=== PATIENT | female | born 1980 | race Caucasian/White ===

== ENCOUNTER → 2019-03-27 19:38 | Outpatient (CLI) | payer OTHER, SELFPAY ==
[2019-03-27 20:49] LABS: HCG Quantitative /Beta subunit 211200 mIU/mL
== END ==
PROVIDERS: Visit Provider Obstetrics & Gynecology
DX: O20.9 Hemorrhage in early pregnancy, unspecified (principal)
CPT/HCPCS: 36415; 84702

== ENCOUNTER → 2019-03-29 17:50 | Outpatient (CLI) | payer OTHER, SELFPAY ==
[2019-03-29 18:29] LABS: Add Manual Diff / Slide Review NO; Basophils Absolute Auto 0 /uL (0-100); Basophils Percent Auto 0.4 % (0-2); Eosinophils Absolute Auto 100 /uL (0-450); Eosinophils Percent Auto 0.9 % (2-4); Hematocrit 39.6 % (36-46); Hemoglobin 13.7 g/dL (12.0-16.0); Lymphocytes Absolute Auto 1500 /uL (1100-4500); Lymphocytes Percent Auto 20.3 % (25-40); Mean Corpuscular HGB Conc 34.7 % (30-36); Mean Corpuscular Hemoglobin 32.7 PG (26-34); Mean Corpuscular Volume 94.4 fL (80-100); Monocytes Absolute Auto 400 /uL (0-900); Monocytes Percent Auto 5.6 % (3-14); Neutrophils Absolute Auto 5400 /uL (1500-7000); Neutrophils Percent Auto 72.8 % (50-75); Platelet Count 287 X10^3/uL (150-400); Red Blood Cell Count 4.19 X10^6/uL (4.0-5.2); Red Cell Distribution Width 12.4 % (11.6-14.8); White Blood Cell Count 7.5 X10^3/uL (4.5-11.0)
[2019-03-29 18:31] LABS: Appearance Urine UA CLEAR; Bilirubin Urine UA NEGATIVE (NEGATIVE); Color Urine UA YELLOW; Glucose Urine UA NEGATIVE (Negative); Ketones Urine UA NEGATIVE (NEGATIVE); Leukocyte Esterase Urine UA NEGATIVE (NEGATIVE); Nitrite Urine UA NEGATIVE (Negative); Occult Blood Urine UA NEGATIVE (Negative); Protein Urine UA NEGATIVE (Negative); Specific Gravity Urine UA <=1.005 (1.000-1.035); Urobilinogen Urine UA 0.2 E.U./dL (0.2); pH Urine UA 6.5 (4.5-8.0)
[2019-03-29 19:48] LABS: Hepatitis B Surface Antigen NEGATIVE s/c (NEGATIVE); Rubella Antibody IgG 41.1 IU/mL (>15)
[2019-03-29 19:51] LABS: HCG Quantitative /Beta subunit 241170 mIU/mL
[2019-03-29 20:00] LABS: HIV 1 and 2 Antibody NEGATIVE (NEGATIVE); Hep C Virus Ab w/Reflex Quant NEGATIVE s/c (NEGATIVE)
[2019-04-01 18:15] LABS: RPR Screen Nonreactive (Nonreactive)
== END ==
PROVIDERS: Visit Provider Obstetrics & Gynecology
DX: Z34.81 Encounter for supervision of other normal pregnancy, first trimester (principal); O20.9 Hemorrhage in early pregnancy, unspecified
CPT/HCPCS: 36415; 80055; 81003; 84702; 86703; 86787; 86803; 86850; 86900; 86901; 87086

== ENCOUNTER → 2019-04-18 13:06 | Outpatient (CLI) | payer OTHER, SELFPAY | PROVIDERS: Visit Provider Obstetrics & Gynecology | DX: O09.529 Supervision of elderly multigravida, unspecified trimester (principal); Z3A.00 Weeks of gestation of pregnancy not specified | CPT/HCPCS: 36415; 81507 ==

== ENCOUNTER 2019-05-30 11:31 | Day surgery (SDC) | payer OTHER, SELFPAY ==
[2019-05-29 15:24] VITALS: BMI 27.5
[2019-05-30] VITALS (8 sets, daily range): BP systolic 98–129; BP diastolic 71–97; PULSE 70–89; RESP 12–16; TEMP 36.1–36.8; O2SAT 96–100; BMI 27.5
--- NOTE | 2019-05-30 | PATH_ITS ---
[facility] Accession Number: [id number] . 01 Material submitted: . product of conception - PRODUCTS OF CONCEPTION . 01 Clinical history: . INCOMPLETE . 02 Diagnosis: Products of Conception: Focal devitalized tissue with an architecture consistent with devitalized chorionic villi (block A4). Background decidualized endometrium with degenerative changes. No evidence of neoplasm. MRV 06/05/2019 1440 Local . 02 Electronically signed: . Sheldon Gilbert MD, PhD, Pathologist NPI- [id number] . 01 Gross description: . PRODUCTS OF CONCEPTION: Received in formalin are multiple fragments of hemorrhagic spongy tissue measuring 5.0 x 2.0 x 1.0 cm in aggregate. parts are not identified. Appeals Examiner sections are submitted in 2 cassettes. [place] [place] 2311 Local . 02 Pathologist provided ICD-10: O02.1 . 02 CPT . 691152 Performed at: 01 [facility] [address] Suite [facility], [place], [place] [id number] MD Albino Tadeo MD Phone: [phone] Performed at: 02 [facility] [address] [place], [place] [id number] MD Ana Pena MD Phone: [phone]
--- NOTE | 2019-05-30 12:53 | PM.HP.1 ---
History of Present Illness History of Present Illness Date Patient Seen: 05/30/19 Time Patient Seen: 12:54 Chief complaint: [id number] Narrative: Patient is a 38-year-old 2 para 1011 with retained products of conception here for a suction D&C Patient History Medical History (Updated 05/29/19 @ 15:30 by Yasmin Pina RN) Abnormal Pap smear of cervix (Resolved) Heavy menstrual period (Chronic) Irregular heart beat (Acute) Pre-eclampsia (Acute) Tachycardia (Acute) Vision disorder (Chronic) Surgical History (Updated 02/18/19 @ 21:28 by Randi Maldonado) Anesthesia (Resolved) Previous section (Resolved ~03/23/05) Family History (Updated 02/18/19 @ 21:46 by Randi Maldonado) Father Multiple sclerosis Mother Breast cancer Hyperlipidemia Brother [place] Grandfather Diabetes mellitus History of heart disease Hypertension Hyperlipidemia Grandmother Diabetes mellitus Grandfather Diabetes mellitus History of heart disease Hypertension Hyperlipidemia Grandmother Epilepsy CVA (cerebral vascular accident) Family/Other Asthma Seasonal allergies Social History household members: spouse and children Smoking Status: Never smoker Family & Social History Family History (Updated 02/18/19 @ 21:46 by Randi Maldonado) Father Multiple sclerosis Mother Breast cancer Hyperlipidemia Brother [place] Grandfather Diabetes mellitus History of heart disease Hypertension Hyperlipidemia Grandmother Diabetes mellitus Grandfather Diabetes mellitus History of heart disease Hypertension Hyperlipidemia Grandmother Epilepsy CVA (cerebral vascular accident) Family/Other Asthma Seasonal allergies Social History: household members spouse,children Tobacco & Substance use: Smoking Status Never smoker Meds Home Medications and Allergies Home Medications Medication Instructions Recorded Confirmed Type cholecalciferol (vitamin D3) 5,000 5,000 unit PO DAILY 01/01/19 05/29/19 History unit capsule Allergies Allergy/AdvReac Type Severity Reaction Status Date / Time adhesive tape AdvReac Mild Hives Verified 05/29/19 11:38 aspirin AdvReac Verified 05/30/19 12:08 Latex, Natural Rubber AdvReac Mother : Verified 05/29/19 11:38 anaphylaxis re Latex - would like to avoid that! Exam Vital Signs (past 8 hours): - 05/30/19 11:54 Temperature 98.3 F Pulse Rate 84 Respiratory Rate 16 Blood Pressure 123/78 Pulse Oximetry 100 Oxygen Delivery Method Room Air Narrative Exam Narrative: HEENT: [No thyromegaly, no anterior cervical or supraclavicular lymphadenopathy.] Lungs:[Clear to auscultation bilaterally, no wheezes.] Cardiovascular: [Regular rate and rhythm, no murmurs, rubs, or gallops]. Abdomen: [Well-healed Pfannenstiel scars. No hepatosplenomegaly. No masses palpable.] External genitalia: [Normal] Vagina: [Normal] Cervix: [Normal] Bimanual exam: 8 Week size uterus. Mobile. Rectal: [No masses]. Ultrasound: Thickened endometrial lining to 16 mm. Heterogeneous contents. Assessment & Plan Assessment & Plan narrative: Assessment: 38-year-old 2 para 1011 with retained products of conception after a delivery at 16 weeks gestation Plan: Suction D&C The risks, benefits, and alternatives to the procedure were explained to the patient. The risks including bleeding, infection, and uterine perforation. Patient understands these risks and agrees to proceed. A full par Q was held and consent form was signed. Time Spent With Patient Time with patient: less than 15 minutes
--- NOTE | 2019-05-30 13:14 | PM.PREOP ---
Pre-operative Note Interval Note History & Physical reviewed/Exam performed by Physician: Yes Changes to H&P: No
[2019-05-30] MEDS: CEFAZOLIN 2 GM/100 ML FROZ.PIGGY IV (13:26)
--- NOTE | 2019-05-30 13:33 | SUR.OPER ---
Lithotomy on padded OR bed, head on pillow, arms secured on padded arm boards at <90 degrees abduction. Legs secured in padded yellow fins stirrups.
--- NOTE | 2019-05-30 13:49 | SUR.OPER ---
DR William AYALA OBSERVED GREEN CLOUDY FLUID FROM UTERUS..ANTIBIOTICS ORDERED. PATIENT DID NOT GET CATHETERIZED SHE HAD VOIDED 30 MIN PRIOR TO OR
--- NOTE | 2019-05-30 13:52 | SUR.OPER ---
Lithotomy on padded OR bed, head on pillow, arms secured on padded arm boards at <90 degrees abduction. Legs secured in padded yellow fins stirrups.
--- NOTE | 2019-05-30 15:11 | SUR.PHASEI ---
Post op note: patient arrived to PACU with oral airway in place. Easily arrousable by voice at 1354, woke up tearful. oral airway was discontinued. VSS, O2 sat on RA WNL. No complaints of pain or nausea. raine pad dry. Stable for transfer to OPD at 1415. Verbal handoff report to Johnny Borrego RN.
--- NOTE | 2019-05-30 16:00 | PM.GYNOP.1 ---
Operative Date/Time/Diagnoses Date of procedure: 05/30/19 Time of procedure: 13:30 Pre-op diagnosis: Retained products conception Post-op diagnosis: same Procedure & Clinicians Procedure: Procedures Operation Date: 05/30/19 13:00 Actual Procedures Side Surgeon p Suction Dilation and Curettage Mishel Enciso MD Indications: Retained products conception Surgeon: Mishel Enciso Anesthesia Type: General (LMA) Operative Notes Findings: 8 week size anteverted uterus Moderate amount of products conception Closure Type: not applicable Specimen(s): uterine contents Estimated blood loss (mL): 50 Blood products transfused: none Procedure in detail: After informed consent was obtained, the patient was taken to the operating room where she was placed in the dorsal supine position. After adequate LMA general anesthesia was achieved, she was placed in the dorsal lithotomy position, and prepped and draped in the usual sterile fashion. A time-out was performed. A bimanual exam was performed which revealed an 8 week size anteverted uterus. A bivalve speculum was placed into the vagina and the anterior lip of the cervix grasped with a single-tooth tenaculum. The cervical os was sequentially dilated to the # 8 Hegar dilator. The # 8 curved plastic curette passed easily into the endometrial cavity. Several passes with suction revealed moderate amount of tissue. The suction curette was removed. Polyp forceps were used to remove several large pieces of retained products of conception. Sharp curettage was performed yielding small amount of tissue and mostly blood. Several more passes with the # 8 curved plastic curette revealed blood only. The instruments were removed from the uterus. The single-tooth tenaculum was removed from the anterior lip of the cervix. The bivalve speculum was removed from the vagina. Sponge, lap, and instrument counts were correct x2. The patient tolerated the procedure well, and was taken to PACU in stable condition. Complications: none Post-operative Condition: stable Disposition: PACU Plan for aftercare: Home after recovery
== END 2019-05-30 14:44 | disposition home or self-care (01) ==
PROVIDERS: Visit Provider Obstetrics & Gynecology
PROC: (CPT 58120; principal; 2019-05-30 13:00)
DX: O02.1 Missed abortion (principal); Z3A.08 8 weeks gestation of pregnancy
CPT/HCPCS: 59821; J0690; J2250; J2405; J2704; J3010

== ENCOUNTER → 2020-02-13 08:40 | Outpatient (CLI) | payer OTHER, SELFPAY ==
[2020-02-13 09:30] LABS: Progesterone, Total 4.24 ng/mL
[2020-02-13 09:32] LABS: Prolactin 16.9 ng/mL (3.0-18.6)
== END ==
PROVIDERS: PCP Physician Assistant; Referring Provider Specialist; Visit Provider Specialist
DX: N63.21 Unspecified lump in the left breast, upper outer quadrant (principal); N97.0 Female infertility associated with anovulation
CPT/HCPCS: 36415; 84144; 84146

== ENCOUNTER → 2020-02-24 13:12 | Outpatient (CLI) | payer OTHER, SELFPAY ==
--- NOTE | 2020-02-24 | DI.US.S_ITS ---
LIMITED ULTRASOUND OF LEFT BREAST: 02/24/2020 CLINICAL: Palpable left breast lump. Baseline exam. No prior exams were available for comparison. Color flow and real-time ultrasound of the left breast 1-2 o'clock region were performed. Vu scale images of the real-time examination were reviewed. Gravid patient. No significant abnormalities were seen sonographically in the left breast in the region of the palpable abnormality. No mass is appreciated by the Rotary Drum Tanner at the time of examination. IMPRESSION: NEGATIVE There is no sonographic evidence of malignancy in the region of the palpable abnormality. Patient is advised to monitor the area for significant change. Clinical evaluation and follow up is recommended in this gravid patient. Otherwise, return to annual mammogram screening schedule is recommended. This exam was interpreted at Station ID: [id number]. Electronically Signed By: Alvaro Norton M.D. [facility] [place]/:02/24/2020 14:50:15 letter sent: Clinical Evaluation Ultrasound BI-RADS: 1 Negative
[2020-02-24 15:10] LABS: HCG Quantitative /Beta subunit 3211.1 mIU/mL
== END ==
PROVIDERS: PCP Physician Assistant; Referring Provider Physician Assistant; Visit Provider Physician Assistant
DX: O92.29 Other disorders of breast associated with pregnancy and the puerperium (principal); Z3A.00 Weeks of gestation of pregnancy not specified
CPT/HCPCS: 36415; 76642; 84702

== ENCOUNTER → 2020-02-29 11:42 | Outpatient (CLI) | payer OTHER, SELFPAY ==
[2020-02-29 12:04] LABS: Appearance Urine UA CLEAR; Bilirubin Urine UA NEGATIVE (NEGATIVE); Color Urine UA YELLOW; Glucose Urine UA NEGATIVE (Negative); Ketones Urine UA NEGATIVE (NEGATIVE); Leukocyte Esterase Urine UA TRACE (NEGATIVE); Nitrite Urine UA NEGATIVE (Negative); Occult Blood Urine UA TRACE-LYSED (Negative); Protein Urine UA NEGATIVE (Negative); Specific Gravity Urine UA <=1.005 (1.000-1.035); Urobilinogen Urine UA 0.2 E.U./dL (0.2)
[2020-02-29 12:13] LABS: Bacteria Urine Few (2-10); Culture Indicated Urine Specimen Cultured; RBC Urine 0-1/HPF (0-5/HPF); Squamous Epithelial Cell Urine 1-5 /HPF (0-5/HPF); WBC Urine 1-5/HPF (0-5/HPF)
== END ==
PROVIDERS: PCP Physician Assistant; Referring Provider Specialist; Visit Provider Specialist
DX: R35.0 Frequency of micturition (principal)
CPT/HCPCS: 81001; 87077; 87086

== ENCOUNTER → 2020-03-02 17:00 | Outpatient (CLI) | payer OTHER, SELFPAY ==
[2020-03-02 18:26] LABS: HCG Quantitative /Beta subunit 27461 mIU/mL
== END ==
PROVIDERS: PCP Physician Assistant; Referring Provider Specialist; Visit Provider Specialist
DX: O20.9 Hemorrhage in early pregnancy, unspecified (principal)
CPT/HCPCS: 36415; 84702

== ENCOUNTER → 2020-03-04 16:12 | Outpatient (CLI) | payer OTHER, SELFPAY ==
[2020-03-04 18:00] LABS: HCG Quantitative /Beta subunit 42138 mIU/mL
== END ==
PROVIDERS: PCP Physician Assistant; Referring Provider Specialist; Visit Provider Specialist
DX: O20.9 Hemorrhage in early pregnancy, unspecified (principal)
CPT/HCPCS: 36415; 84702

== ENCOUNTER → 2020-03-24 15:25 | Outpatient (CLI) | payer OTHER, SELFPAY ==
[2020-03-24 19:51] LABS: Urine N gonorrhoeae NOT DETECTED
[2020-03-24 19:59] LABS: Urine Chlamydia NOT DETECTED
== END ==
PROVIDERS: PCP Physician Assistant; Visit Provider Obstetrics & Gynecology
DX: Z34.81 Encounter for supervision of other normal pregnancy, first trimester (principal); Z11.3 Encounter for screening for infections with a predominantly sexual mode of transmission; Z3A.09 9 weeks gestation of pregnancy
CPT/HCPCS: 87491; 87591

== ENCOUNTER → 2020-03-24 16:03 | Outpatient (CLI) | payer OTHER, SELFPAY ==
[2020-03-24 16:47] LABS: Add Manual Diff / Slide Review NO; Basophils Absolute Auto 0 /uL (0-100); Basophils Percent Auto 0.3 % (0-2); Eosinophils Absolute Auto 100 /uL (0-450); Hematocrit 36.4 % (36-46); Lymphocytes Absolute Auto 1700 /uL (1100-4500); Mean Corpuscular HGB Conc 35.7 % (30-36); Mean Corpuscular Hemoglobin 33.2 PG (26-34); Mean Corpuscular Volume 92.8 fL (80-100); Monocytes Absolute Auto 500 /uL (0-900); Neutrophils Absolute Auto 5300 /uL (1500-7000); Neutrophils Percent Auto 69.7 % (50-75); Platelet Count 265 X10^3/uL (150-400); Red Blood Cell Count 3.93 X10^6/uL (4.0-5.2); Red Cell Distribution Width 12.5 % (11.6-14.8); White Blood Cell Count 7.6 X10^3/uL (4.5-11.0)
[2020-03-24 17:08] LABS: Appearance Urine UA CLEAR; Bilirubin Urine UA NEGATIVE (NEGATIVE); Color Urine UA YELLOW; Glucose Urine UA NEGATIVE (Negative); Ketones Urine UA 1+ (NEGATIVE); Leukocyte Esterase Urine UA NEGATIVE (NEGATIVE); Nitrite Urine UA NEGATIVE (Negative); Occult Blood Urine UA NEGATIVE (Negative); Protein Urine UA NEGATIVE (Negative); Specific Gravity Urine UA <=1.005 (1.000-1.035); Urobilinogen Urine UA 0.2 E.U./dL (0.2)
[2020-03-24 17:12] LABS: pH Urine UA 5.5 (4.5-8.0)
[2020-03-24 21:16] LABS: Hepatitis B Surface Antigen NEGATIVE s/c (NEGATIVE); Rubella Antibody IgG 31.3 IU/mL (>15)
[2020-03-24 21:33] LABS: HIV 1 & 2 Ab/Ag 4th Gen Combo NEGATIVE (NEGATIVE); Hep C Virus Ab w/Reflex Quant NEGATIVE s/c (NEGATIVE)
[2020-03-25 04:08] LABS: RPR Screen Non Reactive (Non Reactive)
[2020-03-25 10:08] LABS: Varicella IgG Antibody 305 index (Immune >165)
== END ==
PROVIDERS: PCP Physician Assistant; Referring Provider Obstetrics & Gynecology; Visit Provider Obstetrics & Gynecology
DX: O09.521 Supervision of elderly multigravida, first trimester (principal); Z11.3 Encounter for screening for infections with a predominantly sexual mode of transmission; Z3A.09 9 weeks gestation of pregnancy
CPT/HCPCS: 36415; 80055; 81003; 86787; 86803; 86850; 86900; 86901; 87086; 87389; 87491; 87591

== ENCOUNTER 2020-04-12 16:52 | Emergency (ER) | payer OTHER, SELFPAY ==
[2020-04-12 17:09] VITALS: BP 117/71; PULSE 99; RESP 16; TEMP 37.1; O2SAT 99; BMI 28.7
--- NOTE | 2020-04-12 17:20 | DI.US.S_ITS ---
PROCEDURE: US OB <= 14 WEEKS FETUS INDICATIONS: BLEEDING OUTSIDE/PRIOR DATING DATA: Last menstrual period (LMP): 01/20/20. LMP-based estimated date of delivery (NEREYDA): 10/26/20 . First dating scan (date and location): 03/09/20 . Estimated date of delivery (NEREYDA) from first dating scan: 10/20/20 . TECHNIQUE: Real-time scanning was performed of the fetus and maternal pelvic organs, with image documentation. Endovaginal scanning was also performed to better visualize the fetus and maternal ovaries. COMPARISON: [facility], , OB <= 14 WEEKS FETUS, 03/24/2020, 13:08. FINDINGS: Embryo: A single living 1st trimester intrauterine is noted. Mitchell-rump length measures 6.3 cm, 12 weeks 5 days. There is a complete placenta previa. There is is wall hypoechoic area which may potentially represent a subchorionic hemorrhage measuring 0.7 x 0.3 x 0.6 cm. Incidental uterine fibroid measures 1.0 x 1.0 x 1.2 cm. heart tones are 163 beats per minute. Measurement variability in dating: +/- 4 weeks by LMP, +/- 7 days by mean sac diameter (use before 6 weeks gestation if crown-rump length not able to be measured), +/- 5 days by crown-rump length (up to 8 weeks 6 days gestation), +/- 7 days by crown-rump length (up to 13 weeks 6 days gestation). Maternal organs: Ovaries not visualized. Limited images through the kidneys demonstrate no hydronephrosis. IMPRESSION: 1. Living late 1st trimester intrauterine . 2. Complete placenta previa. Dictated by: Babak Clayton M.D. on 04/12/2020 at 18:23 Approved by: Babak Clayton M.D. on 04/12/2020 at 18:27
[2020-04-12 17:45] LABS: Add Manual Diff / Slide Review NO; Basophils Absolute Auto 0 /uL (0-100); Basophils Percent Auto 0.4 % (0-2); Eosinophils Absolute Auto 100 /uL (0-450); Hematocrit 37.5 % (36-46); Hemoglobin 13.3 g/dL (12.0-16.0); Lymphocytes Absolute Auto 1600 /uL (1100-4500); Lymphocytes Percent Auto 20.8 % (25-40); Mean Corpuscular HGB Conc 35.4 % (30-36); Mean Corpuscular Hemoglobin 32.6 PG (26-34); Mean Corpuscular Volume 91.9 fL (80-100); Monocytes Absolute Auto 400 /uL (0-900); Monocytes Percent Auto 5.5 % (3-14); Neutrophils Absolute Auto 5600 /uL (1500-7000); Neutrophils Percent Auto 72.3 % (50-75); Platelet Count 274 X10^3/uL (150-400); Red Blood Cell Count 4.08 X10^6/uL (4.0-5.2); Red Cell Distribution Width 12.7 % (11.6-14.8); White Blood Cell Count 7.7 X10^3/uL (4.5-11.0)
[2020-04-12 17:59] LABS: INR 0.9 (0.9-1.3); Prothrombin Time 10.4 SECONDS (10.1-12.7)
[2020-04-12 18:02] LABS: PTT Partial Thromboplastin Tim 31 SECONDS (26.4-36.2)
[2020-04-12 18:48] LABS: HCG Quantitative /Beta subunit 102800 mIU/mL
[2020-04-12 19:09] VITALS: BP 116/73; PULSE 92; RESP 14; O2SAT 100
[2020-04-12 19:10] VITALS: BP 116/73
--- NOTE | 2020-04-13 01:59 | ED_ITS ---
HPI - <Jeovanny Roldan [facility] - Last Filed: 04/13/20 02:15> General Chief complaint: OB/Uterine Contractions Stated complaint: 12wks , Vaginal Bleeding, Sent by Dr Time Seen by Provider: 04/12/20 17:19 Source: patient Mode of arrival: Ambulatory Limitations: no limitations History of Present Illness HPI Narrative: This is a 39-year-old female, nonsmoker, who is with history of 2nd trimester loss to chorioamnionitis with GBS infection at 16 week EGA presents to ED with chief complain of increasing bright red vaginal spotting and bleeding. She reports LMP as 01/20/20 and 12 week EGA. Patient reports she was referred by Dr. Enciso for ultrasound test. She reports initially noticed light pink tinged vaginal discharge 4 weeks ago and has been seeing Dr. Enciso for early ultrasound test and follow-ups since she has 2nd trimester miscarriage. Three weeks ago she had 2 large red vaginal clots which stopped after a week. She noticed recurring vaginal bleed on today but this time it was bright red in color. It covered the whole large toilet tissue. She drink water and rested at least 2 hour and she had another episode of vaginal gush and clots which was bright red. Patient denies chest pain, breathing difficulty, lightheadedness. Patient reports very mild suprapubic pressure. Hx Last Menstrual Period: 01/20/20 Patient : Yes Expected Date of Delivery: 10/26/20 Related Data Home Medications Medication Instructions Recorded Confirmed prenat.vits,gilberto,[id number] 1 tab PO DAILY 03/25/20 03/25/20 Allergies Allergy/AdvReac Type Severity Reaction Status Date / Time Latex, Natural Rubber AdvReac Severe Mother : Verified 04/12/20 17:15 anaphylaxis re Latex - would like to avoid that! aspirin AdvReac Intermediate skin was Verified 04/12/20 17:15 on fire and severe flu-like feeling adhesive tape AdvReac Mild Hives Verified 04/12/20 17:15 Review of Systems <Jeovanny Roldan PRIMARY OPERATOR - Last Filed: 04/13/20 02:15> Review of Systems Narrative: General: Denies fever, chills, fatigue, malaise, sweats. HEENT: Denies sinus pain, ear pain, sore throat, difficulty swallowing, dizziness. Respiratory: Denies dyspnea, cough, wheezing, hemoptysis, sputum. Cardiovascular: Denies chest pain, palpitations, orthopnea, edema. Gastrointestinal: Denies nausea, vomiting, abdominal pain, diarrhea, constipation, melena. : See HPI Musculoskeletal: Denies weakness, joint pain or bony pain. Skin: Denies rash, skin lesions, or other. Neurologic: Denies weakness, headache, numbness, change in speech, confusion, seizures, incoordination. Psychiatric: No concerning psychosocial issues. 12-point review of systems is negative except for those stated above. PMFSH - <ESEQUIEL DrummondP - Last Filed: 04/13/20 02:15> Past Medical History NEWSPAPER OR PERIODICAL EDITOR history: Reports Spontaneous (at 16 wk EGA due to GBS infection) Hx Last Menstrual Period: 01/20/20 Patient : Yes Expected Date of Delivery: 10/26/20 Exam [facility] - Last Filed: 04/13/20 02:15> Narrative Exam Narrative: General appearance: well developed, well nourished, in no acute distress. Head: normocephalic, atraumatic, no scalp lesions, non-tender. ENT: Hearing grossly intact. Airway patent. Neck/Thyroid: neck supple, full range of motion, no visible masses or meningeal signs. No JVD, non-tender without lymphadenopathy. Skin: no suspicious rashes, lesions over visible areas. Warm and dry and appropriate color for ethnicity. Heart: no clubbing, no cyanosis, no edema. S1 and S2 normal. RRR w/o murmurs, clicks, or bruits. Lungs: Breathing even and unlabored. No stridor. No accessory muscles used. Able to speak in full sentences. Chest: normal shape and expansion. Abdomen: non-obese, non-distended. Neurologic: alert and oriented. Cognitive exam, CRIMINAL JUSTICE PROGRAM DIRECTOR and PNS grossly intact on informal exam. Psych: good eye contact, normal affect. Initial Vital Signs Initial Vital Signs: Vital Signs Temperature 98.8 F 04/12/20 17:09 Pulse Rate 99 H 04/12/20 17:09 Respiratory Rate 16 04/12/20 17:09 Blood Pressure 117/71 04/12/20 17:09 Pulse Oximetry 99 04/12/20 17:09 <Gisele Gibbons MD - Last Filed: 04/13/20 03:19> Initial Vital Signs Initial Vital Signs: Vital Signs Temperature 98.8 F 04/12/20 17:09 Pulse Rate 99 H 04/12/20 17:09 Respiratory Rate 16 04/12/20 17:09 Blood Pressure 117/71 04/12/20 17:09 Pulse Oximetry 99 04/12/20 17:09 Scores <YAHAIRA Drummond - Last Filed: 04/13/20 02:15> GCS Gipsy coma scale eye opening: Spontaneous Ceci coma scale verbal response: Orientated Ceci coma scale motor response: Obey commands Gipsy coma scale total score: 15 Course <YAHAIRA Drummond - Last Filed: 04/13/20 02:15> Orders Ordered: ED Orders 04/12/20 17:20 US OB <= 14 weeks fetus Stat 04/12/20 17:35 ABO RH Type Stat Complete Blood Count AUTO DIFF Stat HCG Quantitative /Beta subunit Stat Partial Thromboplastin Time Stat Prothrombin Time INR Stat Vital Signs Vital signs: Vital Signs - 8 hr 04/12/20 19:09 04/12/20 19:10 Pulse Rate 92 H Respiratory Rate 14 Blood Pressure 116/73 116/73 Pulse Oximetry 100 <Gisele Gibbons MD - Last Filed: 04/13/20 03:19> Orders Ordered: ED Orders 04/12/20 17:20 US OB <= 14 weeks fetus Stat 04/12/20 17:35 ABO RH Type Stat Complete Blood Count AUTO DIFF Stat HCG Quantitative /Beta subunit Stat Partial Thromboplastin Time Stat Prothrombin Time INR Stat Vital Signs Vital signs: Vital Signs - 8 hr 04/12/20 19:09 04/12/20 19:10 Pulse Rate 92 H Respiratory Rate 14 Blood Pressure 116/73 116/73 Pulse Oximetry 100 MDM - OB/Uterine Contractions <YAHAIRA Drummond - Last Filed: 04/13/20 02:15> Differential Diagnosis Differential diagnosis: Likely other (Placenta previa, placenta rupture, threatened ) Medical Records Attestation: I reviewed the patient's medical records. Lab Data Attestation: I reviewed the patient's lab results. Result diagrams: 04/12/20 17:35 Labs: Lab Results 04/12/20 04/12/2004/12/20 Range/Units 17:35 17:35 17:35 WBC 7.7 (4.5-11.0) X10^3/uL RBC 4.08 (4.0-5.2) X10^6/uL Hgb 13.3 (12.0-16.0) g/dL Hct 37.5 (36-46) % MCV 91.9 (80-100) fL MCH 32.6 (26-34) PG MCHC 35.4 (30-36) % RDW 12.7 (11.6-14.8) % Plt Count 274 (150-400) X10^3/uL Neut % (Auto) 72.3 (50-75) % Lymph % (Auto) 20.8 L (25-40) % [place] % (Auto) 5.5 (3-14) % Eos % (Auto) 1.0 L (2-4) % Baso % (Auto) 0.4 (0-2) % Neut # (Auto) 5600 (8245-7969) /uL Lymph # (Auto) 1600 (6462-1170) /uL [place] # (Auto) 400 (0-900) /uL Eos # (Auto) 100 (0-450) /uL Baso # (Auto) 0 (0-100) /uL PT 10.4 (10.1-12.7) SECONDS INR 0.9 (0.9-1.3) APTT 31 (26.4-36.2) SECONDS HCG, Quant [id number] mIU/mL Blood Type 04/12/20 Range/Units 17:35 WBC (4.5-11.0) X10^3/uL RBC (4.0-5.2) X10^6/uL Hgb (12.0-16.0) g/dL Hct (36-46) % MCV (80-100) fL MCH (26-34) PG MCHC (30-36) % RDW (11.6-14.8) % Plt Count (150-400) X10^3/uL Neut % (Auto) (50-75) % Lymph % (Auto) (25-40) % [place] % (Auto) (3-14) % Eos % (Auto) (2-4) % Baso % (Auto) (0-2) % Neut # (Auto) (9192-0254) /uL Lymph # (Auto) (7318-1166) /uL [place] # (Auto) (0-900) /uL Eos # (Auto) (0-450) /uL Baso # (Auto) (0-100) /uL PT (10.1-12.7) SECONDS INR (0.9-1.3) APTT (26.4-36.2) SECONDS HCG, Quant mIU/mL Blood Type O Positive MDM Narrative Medical decision making narrative: This is 39-year-old female with 12 with EGA, AB1 at 16 week EGA April last year due to GBS infection presents to ED with light bright red vaginal bleeding that recurred today with very mild suprapubic pressure. CBC shows normal H&H of 13.3/37.5. Normal coags with HCG quant of [id number]. US for <14 week shows living late 1st trimester IUP with heart rate of [address] Enciso consulted and was recommended patient to remain modified pelvic rest and to follow-up with her in 2 days. Findings and recommendation were shared w ith the patient and patient verbalized understanding and in agreement with treatment plan. Strict return precautions were also discussed with patient. <Gisele Gibbons MD - Last Filed: 04/13/20 03:19> Lab Data Labs: Lab Results 04/12/20 04/12/20 04/12/20 Range/Units 17:35 17:35 17:35 WBC 7.7 (4.5-11.0) X10^3/uL RBC 4.08 (4.0-5.2) X10^6/uL Hgb 13.3 (12.0-16.0) g/dL Hct 37.5 (36-46) % MCV 91.9 (80-100) fL MCH 32.6 (26-34) PG MCHC 35.4 (30-36) % RDW 12.7 (11.6-14.8) % Plt Count 274 (150-400) X10^3/uL Neut % (Auto) 72.3 (50-75) % Lymph % (Auto) 20.8 L (25-40) % [place] % (Auto) 5.5 (3-14) % Eos % (Auto) 1.0 L (2-4) % Baso % (Auto) 0.4 (0-2) % Neut # (Auto) 5600 (4781-1123) /uL Lymph # (Auto) 1600 (1596-9205) /uL [place] # (Auto) 400 (0-900) /uL Eos # (Auto) 100 (0-450) /uL Baso # (Auto) 0 (0-100) /uL PT 10.4 (10.1-12.7) SECONDS INR 0.9 (0.9-1.3) APTT 31 (26.4-36.2) SECONDS HCG, Quant [id number] mIU/mL Blood Type 04/12/20 Range/Units 17:35 WBC (4.5-11.0) X10^3/uL RBC (4.0-5.2) X10^6/uL Hgb (12.0-16.0) g/dL Hct (36-46) % MCV (80-100) fL MCH (26-34) PG MCHC (30-36) % RDW (11.6-14.8) % Plt Count (150-400) X10^3/uL Neut % (Auto) (50-75) % Lymph % (Auto) (25-40) % [place] % (Auto) (3-14) % Eos % (Auto) (2-4) % Baso % (Auto) (0-2) % Neut # (Auto) (9408-1555) /uL Lymph # (Auto) (4869-4399) /uL [place] # (Auto) (0-900) /uL Eos # (Auto) (0-450) /uL Baso # (Auto) (0-100) /uL PT (10.1-12.7) SECONDS INR (0.9-1.3) APTT (26.4-36.2) SECONDS HCG, Quant mIU/mL Blood Type O Positive Discharge Plan Departure Patient Disposition: Home Clinical Impression: Bleeding in early , Placenta previa in first trimester Discharge Date/Time: 04/12/20 19:11 Instructions: DI for Placenta Previa Activity Restrictions/Additional Instructions: You have been diagnosed with [vaginal bleeding in 1st trimester, complete placenta previa per ultrasound test. Your blood type is O positive. Blood count is within normal limits.]. What to do: *Take your medications as directed. To take your vitamins and you can use [id number] Tylenol as needed for discomfort. Dr. Enciso recommended modified pelvic rest at this time. Please rest at home and you can take shower, fix light meal. Otherwise limit physical activities, intercourse, douching, or using tampon. *Follow up with Dr. Enciso on Monday as scheduled. Let them know you were seen in the ED and that we asked you to be seen in follow up. *Return to ED if you have any new, worsening, or concerning symptoms, such as [fever, chest pain, breathing difficulty, unable to tolerate fluids, lightheadedness, worsening bleeding such as you have to change normal menstrual pad every hour more than 2-3 times or any acute concerns]. Prescriptions: No Action prenat.vits,gilberto,[id number]-[id number] Tablet 1 tab PO DAILY RF: 0 Referrals: Mishel Enciso MD [Physician] - Ekta Guzman PA-C [Primary Care Provider] - <Gisele Gibbons MD - Last Filed: 04/13/20 03:19> [facility] throughout this patient's visit. I agree with documentation as above. Gisele Gibbons MD
== END 2020-04-12 19:11 | disposition home or self-care (01) ==
PROVIDERS: Emergency Provider Nurse Practitioner Family; PCP Physician Assistant; Referring Provider Obstetrics & Gynecology
DX: O44.11 Complete placenta previa with hemorrhage, first trimester (principal); Z3A.12 12 weeks gestation of pregnancy
CPT/HCPCS: 36415; 76801; 76817; 84702; 85025; 85610; 85730; 86900; 86901; 99283; 99284

== ENCOUNTER → 2020-04-14 13:05 | Outpatient (CLI) | payer OTHER, SELFPAY | PROVIDERS: PCP Physician Assistant; Referring Provider Obstetrics & Gynecology; Visit Provider Obstetrics & Gynecology | DX: O09.521 Supervision of elderly multigravida, first trimester (principal); Z36.0 Encounter for antenatal screening for chromosomal anomalies | CPT/HCPCS: 36415; 81420 ==

== ENCOUNTER → 2020-04-22 13:23 | Outpatient (CLI) | payer OTHER, SELFPAY ==
[2020-04-22 13:44] LABS: Bacteria Urine None Seen; RBC Urine None Seen (0-5/HPF); WBC Urine None Seen (0-5/HPF)
[2020-04-22 14:15] LABS: Appearance Urine UA CLEAR; Bilirubin Urine UA NEGATIVE (NEGATIVE); Color Urine UA YELLOW; Glucose Urine UA NEGATIVE (Negative); Ketones Urine UA TRACE (NEGATIVE); Leukocyte Esterase Urine UA NEGATIVE (NEGATIVE); Nitrite Urine UA NEGATIVE (Negative); Occult Blood Urine UA NEGATIVE (Negative); Protein Urine UA NEGATIVE (Negative); Urobilinogen Urine UA 0.2 E.U./dL (0.2)
[2020-04-22 14:22] LABS: Culture Indicated Urine Cult Not Indicated; Urine Comments Microscopic Normal
== END ==
PROVIDERS: PCP Physician Assistant; Referring Provider Obstetrics & Gynecology; Visit Provider Obstetrics & Gynecology
DX: O26.899 Other specified pregnancy related conditions, unspecified trimester (principal); R10.2 Pelvic and perineal pain; R35.0 Frequency of micturition
CPT/HCPCS: 81001

== ENCOUNTER → 2020-05-12 11:20 | Outpatient (CLI) | payer OTHER, SELFPAY ==
[2020-05-15 19:07] LABS: AFP Value 50.9 ng/mL (.); Gest Age on Col Date 16.1 weeks (.); Insulin Dep Diabetes No (.); OSBR Risk 1IN 1514 (.); Results Report (.); Test Results *Screen Negative* (.)
== END ==
PROVIDERS: PCP Physician Assistant; Referring Provider Obstetrics & Gynecology; Visit Provider Obstetrics & Gynecology
DX: O09.522 Supervision of elderly multigravida, second trimester (principal); Z3A.16 16 weeks gestation of pregnancy
CPT/HCPCS: 36415; 82105

== ENCOUNTER → 2020-06-08 12:07 | Outpatient (CLI) | payer OTHER, SELFPAY ==
--- NOTE | 2020-06-08 12:07 | DI.US.S_ITS ---
PROCEDURE: US OB >= 14 WEEKS FETUS INDICATIONS: Anatomy Scan OUTSIDE/PRIOR DATING DATA: Last menstrual period (LMP): 01/20/20. LMP-based estimated date of delivery (NEREYDA): 10/26/20 . First dating scan (date and location): 03/09/20 . Estimated date of delivery (NEREYDA) from first dating scan: 10/27/20 . TECHNIQUE: Real-time scanning was performed of the fetus, with image documentation and biometric measurements. Endovaginal scanning: Not performed COMPARISON: [facility], OB >= 14 WEEKS FETUS, 04/28/2020, 12:22. [facility] OB <= 14 WEEKS FETUS, 04/14/2020, 12:44. [facility] OB <= 14 WEEKS FETUS, 04/12/2020, 17:53. [facility] OB <= 14 WEEKS FETUS, 03/24/2020, 13:08. [facility] OB <= 14 WEEKS FETUS, 03/09/2020, 9:10. [facility] OB <= 14 WEEKS FETUS, 03/02/2020, 16:51. [facility] OB >= 14 WEEKS FETUS, 05/12/2020, 11:09. FINDINGS: General: A single living intrauterine gestation is present. Presentation: Transverse. Placenta: Placental position is posterior , without previa. Amniotic fluid index: 16.1 cm, normal range is 5-24 cm. heart rate: 145 beats per minute. Maternal cervical canal: 4.4 cm long. Normal lower limit is 2.5 cm. biometrics: Biparietal diameter: 4.7 cm, 20 weeks 2 days Head circumference: 17.6 cm, 20 weeks 0 days Abdominal circumference: 14.8 cm, 20 weeks 0 days Femur length: 3.2 cm, 19 weeks 6 days Estimated gestational age from initial scan: 19 weeks 6 days Composite gestational age from present scan: 20 weeks 0 days Estimated weight and percentile: 326 g, 54th percentile Measurement variability for biometric dating: +/- 7 days from 14 weeks to 15 weeks 6 days gestation, +/- 10 days from 16 weeks to 21 weeks 6 days gestation, +/- 2 weeks from 22 weeks to 27 weeks 6 days gestation, +/- 3 weeks for 28 weeks gestation or later. weight reference: 4500 g or EFW >90/95% is considered macrosomia or large for gestational age. EFW <10% is small for gestational age. EFW 5% or less is considered intra-uterine growth restriction. Anatomic survey: Neuro: Ventricles are non-dilated at less than 10 mm. Cisterna magna is normal at 3-11 mm. Cerebellum is normal in size and morphology. Nuchal skin fold: Normal at less than 6 mm between 14-21 weeks gestational age. Face: Nose and lips, facial profile are normal. Spine: No evidence for spina bifida. Heart: 4-chambered heart is present, with normal ventricular outflow tracts. Diaphragm: Diaphragm is intact. Stomach: Left-sided stomach is present. Kidneys: No hydronephrosis. Normal is less than 5 mm in 2nd trimester, less than 7 mm in 3rd trimester. Cord: 3-vessel cord has orthotopic insertion. Bladder: Normal in size. Extremities: All 4 extremities identified. In the inferior placenta tip, there is anechoic area, probably incidental placental cummings versus chronic hematoma technically nonspecific . This measures 2.2 x 1.2 cm IMPRESSION: Single living intrauterine fetus in transverse presentation. Expected interval growth Dictated by: Kieran Yancey M.D. on 06/08/2020 at 16:04 Approved by: Kieran Yancey M.D. on 06/08/2020 at 16:08
== END ==
PROVIDERS: PCP Physician Assistant; Referring Provider Physician Assistant; Visit Provider Obstetrics & Gynecology
DX: Z34.82 Encounter for supervision of other normal pregnancy, second trimester (principal); Z3A.20 20 weeks gestation of pregnancy
CPT/HCPCS: 76811

== ENCOUNTER → 2020-07-08 11:16 | Outpatient (CLI) | payer OTHER, SELFPAY ==
[2020-07-08 12:32] LABS: Hematocrit 34.4 % (36-46); Hemoglobin 11.8 g/dL (12.0-16.0)
[2020-07-08 17:07] LABS: GTT (PREG) 1 Hour PP 50gm Dose 137 mg/dL (76-139)
== END ==
PROVIDERS: PCP Physician Assistant; Referring Provider Obstetrics & Gynecology; Visit Provider Obstetrics & Gynecology
DX: Z34.82 Encounter for supervision of other normal pregnancy, second trimester (principal); Z3A.26 26 weeks gestation of pregnancy
CPT/HCPCS: 36415; 82950; 85014; 85018

== ENCOUNTER → 2020-08-05 12:09 | Outpatient (CLI) | payer OTHER, SELFPAY ==
[2020-08-05 14:14] LABS: Urine N gonorrhoeae NOT DETECTED
[2020-08-05 14:19] LABS: Urine Chlamydia NOT DETECTED
== END ==
PROVIDERS: PCP Physician Assistant; Visit Provider Obstetrics & Gynecology
DX: Z34.83 Encounter for supervision of other normal pregnancy, third trimester (principal); Z3A.28 28 weeks gestation of pregnancy
CPT/HCPCS: 87491; 87591

== ENCOUNTER 2020-08-10 17:13 | Observation (INO) | payer OTHER, SELFPAY ==
--- NOTE | 2020-08-10 18:01 | DI.US.S_ITS ---
PROCEDURE: US OB TRANSVAGINAL INDICATIONS: PTL OUTSIDE/PRIOR DATING DATA: Last menstrual period (LMP): 01/20/2020 . LMP-based estimated date of delivery (NEREYDA): 10/26/2020 . First dating scan (date and location): 03/09/2020, [facility]. Estimated date of delivery (NEREYDA) from first dating scan: 10/27/2020 . TECHNIQUE: Real-time scanning was performed of the fetus, with image documentation. Endovaginal scanning: Yes COMPARISON: None. FINDINGS: A single living intrauterine gestation is present. Presentation: Transverse Placenta: Placental position is low , without previa. Amniotic fluid index: 13.9 cm, normal range is 5-24 cm. heart rate: 155 beats per minute. Maternal cervical canal: 3.2 cm long. Normal lower limit is 2.5 cm. Adjacent to the placenta and near the cervix there is an anechoic focus measuring 3.6 cm which demonstrates increased vascularity Estimated gestational age from initial scan: 28 weeks 6 days . IMPRESSION: 1. Single live intrauterine with an estimated gestational age of 28 weeks 6 days. 2. Vasa Previa. The ordering provider was present at the time of the exam. Dictated by: Roman Bowser M.D. on 08/10/2020 at 19:37 Approved by: Roman Bowser M.D. on 08/10/2020 at 19:45
--- NOTE | 2020-08-10 18:26 | PM.OBTRLD ---
Visit Information Visit Information Date of evaluation: 08/10/20 Primary OB Provider: Mishel Enciso On-call OB Provider: Manju Rodriguez Reason for Evaluation: Yes pre-term labor Comments/Additional reasons for admission: 39YO @ [id number] by LMP and early US. Here for evaluation of contractions. Has been feeling regular, uncomfortable cramping x 1 week. +FM. No VB or LOF. Has been hydrating well and feels the contractions both at rest and with activity. Anxious about the number of contractions after her discussion at her last appt w/ . Placenta previa, now resolved. [facility] Medical History Abnormal Pap smear of cervix Advanced maternal age during BRCA gene mutation negative Chorioamnionitis (~04/2019) demise, less than 22 weeks (~05/19/19) GBS (group B streptococcus) infection (~05/19/19) Heavy menstrual period History of loss in prior , currently in second trimester HPV (human papilloma virus) infection (~2004) Irregular heart beat Pre-eclampsia Premature rupture of membranes (~05/19/19) Retained placenta (~05/2019) Screening mammogram for high-risk patient Tachycardia Trauma (~02/2005) Vision disorder Surgical History Anesthesia H/O dilation and curettage (~06/09/19) History of delivery affecting History of colposcopy (~2004) Previous section (~03/23/05) Family History Father Multiple sclerosis Precancerous skin lesion Mother Breast cancer Hyperlipidemia Latex allergy, anaphylaxis Asthma Brother Keratoconus Grandfather Diabetes mellitus History of heart disease Hypertension Hyperlipidemia History of heart bypass surgery Grandmother Diabetes mellitus Pawel's disease Hemochromatosis Heart failure Grandfather Diabetes mellitus History of heart disease Hypertension Hyperlipidemia Grandmother Epilepsy CVA (cerebral vascular accident) Family/Other Asthma Seasonal allergies Eczema of left upper extremity Family/Other Pawel's disease Family/Other Breast cancer Family/Other Diabetes mellitus Gestational diabetes Social History marital status: number of children: 1 household members: spouse and children pets and animals: Yes (X 1 dog) education level: college occupational status: employed current occupational exposures/hazards: No 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 Status: Never smoker second hand exposure: No alcohol intake: never (pre- : very, very rare use = sips) substance use type: does not use Review of Systems Review of Systems ROS: Yes All systems reviewed with the patient and are negative except as otherwise documented Exam Vital Signs (past 8 hours): BP 121/82, AH36dmc, RR20/min, T98.4F Temporal Evaluation Evaluation Baseline heart rate: 140 Variability: Moderate (11-25) monitor accelerations: Present monitor decelerations: Absent Contraction Frequency (minutes): 10 Uterine Contraction Intensity: Mild Comments: TV US CL 3.2cm, no funneling, see report Diagnosis, Plan/Disposition Final Diagnosis (1) uterine contractions in third trimester, antepartum: Status: Acute Problem details: not in labor Plan/Disposition Plan: fFN drawn, but not sent after CL US reported normal CL. Discharge to home with routine labor precautions. Encouraged her to call if cramping strengthens beyond what she has been feeling the past week. Follow-up with as scheduled, or sooner, PRN concerns. OB Disposition: home
[2020-08-10 19:38] LABS: Appearance Urine UA CLEAR; Bilirubin Urine UA NEGATIVE (NEGATIVE); Color Urine UA YELLOW; Glucose Urine UA NEGATIVE (Negative); Ketones Urine UA 1+ (NEGATIVE); Leukocyte Esterase Urine UA NEGATIVE (NEGATIVE); Nitrite Urine UA NEGATIVE (Negative); Occult Blood Urine UA NEGATIVE (Negative); Protein Urine UA NEGATIVE (Negative); Urobilinogen Urine UA 0.2 E.U./dL (0.2)
[2020-08-10 19:45] LABS: pH Urine UA 6.5 (4.5-8.0)
== END 2020-08-10 19:40 | disposition home or self-care (01) ==
PROVIDERS: Admitting Provider Nurse Practitioner Obstetrics & Gynecology; PCP Physician Assistant; Referring Provider Nurse Practitioner Obstetrics & Gynecology; Visit Provider Nurse Practitioner Obstetrics & Gynecology
DX: O47.03 False labor before 37 completed weeks of gestation, third trimester (principal); Z3A.29 29 weeks gestation of pregnancy
CPT/HCPCS: 59025; 59050; 76817; 81003; G0378; G0379

== ENCOUNTER 2020-08-11 17:54 | Observation (INO) | payer OTHER, SELFPAY ==
[2020-08-11 18:52] LABS: Fetal Fibronectin Negative
== END 2020-08-11 20:00 | disposition home or self-care (01) ==
PROVIDERS: Admitting Provider Obstetrics & Gynecology; PCP Physician Assistant; Referring Provider Obstetrics & Gynecology; Visit Provider Obstetrics & Gynecology
DX: O09.522 Supervision of elderly multigravida, second trimester (principal); O26.892 Other specified pregnancy related conditions, second trimester; Z3A.26 26 weeks gestation of pregnancy
CPT/HCPCS: 59025; 59050; 82731; G0378; G0379

== ENCOUNTER 2020-08-17 19:19 | Outpatient (CLI) | payer OTHER, SELFPAY ==
--- NOTE | 2020-08-17 20:21 | PM.OBTRLD ---
Visit Information Visit Information Date of evaluation: 08/17/20 Primary OB Provider: Mishel Enciso On-call OB Provider: Akanksha Nathan Reason for Evaluation: Yes pre-term labor Comments/Additional reasons for admission: 39 year old at 30 weeks gestation in with concerns for labor. She was evaluated in the center a week ago for contractions. FFN was negative and CL 3.2 cm. She was prescribed nifedipine but read that it was a class C drug in . She also was concerned that it would mask labor. Denies leaking or bleeding and reports good FM. Vital Signs Vital Signs: T 36.6 BP 109/76 HR 99 PFSH Medical History Abnormal Pap smear of cervix Advanced maternal age during BRCA gene mutation negative Chorioamnionitis (~04/2019) demise, less than 22 weeks (~05/19/19) GBS (group B streptococcus) infection (~05/19/19) Heavy menstrual period History of loss in prior , currently in second trimester HPV (human papilloma virus) infection (~2004) Irregular heart beat Pre-eclampsia Premature rupture of membranes (~05/19/19) Retained placenta (~05/2019) Screening mammogram for high-risk patient Tachycardia Trauma (~02/2005) Vision disorder Surgical History Anesthesia H/O dilation and curettage (~06/09/19) History of delivery affecting History of colposcopy (~2004) Previous section (~03/23/05) Family History Father Multiple sclerosis Precancerous skin lesion Mother Breast cancer Hyperlipidemia Latex allergy, anaphylaxis Asthma Brother Keratoconus Grandfather Diabetes mellitus History of heart disease Hypertension Hyperlipidemia History of heart bypass surgery Grandmother Diabetes mellitus Pawel's disease Hemochromatosis Heart failure Grandfather Diabetes mellitus History of heart disease Hypertension Hyperlipidemia Grandmother Epilepsy CVA (cerebral vascular accident) Family/Other Asthma Seasonal allergies Eczema of left upper extremity Family/Other Pawel's disease Family/Other Breast cancer Family/Other Diabetes mellitus Gestational diabetes Social History marital status: number of children: 1 household members: spouse and children pets and animals: Yes (X 1 dog) education level: college occupational status: employed current occupational exposures/hazards: No 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 FFN negative and CL 3.2 cm one week ago. She had 1 contractions over the hour she was on the monitor. Patient advised to take the nifedipine if contractions are persistent and to return to the center prn. Follow up in clinic as scheduled next week. OB Disposition: home
== END 2020-08-17 20:28 | disposition home or self-care (01) ==
LOC: LABOR 19:52 → OB 08-18 07:40
PROVIDERS: PCP Physician Assistant; Referring Provider Family Medicine; Visit Provider Family Medicine
DX: O47.03 False labor before 37 completed weeks of gestation, third trimester (principal); O09.523 Supervision of elderly multigravida, third trimester; Z3A.30 30 weeks gestation of pregnancy
CPT/HCPCS: 59025; G0378; G0379

== ENCOUNTER → 2020-08-26 09:16 | Outpatient (CLI) | payer OTHER, SELFPAY ==
[2020-08-26 09:53] LABS: Fetal Fibronectin Negative
== END ==
PROVIDERS: PCP Physician Assistant; Visit Provider Obstetrics & Gynecology
DX: O47.03 False labor before 37 completed weeks of gestation, third trimester (principal); Z3A.31 31 weeks gestation of pregnancy
CPT/HCPCS: 82731

== ENCOUNTER → 2020-09-09 10:41 | Outpatient (CLI) | payer OTHER, SELFPAY ==
[2020-09-09 11:17] LABS: Fetal Fibronectin Negative
== END ==
PROVIDERS: PCP Physician Assistant; Visit Provider Obstetrics & Gynecology
DX: O47.03 False labor before 37 completed weeks of gestation, third trimester (principal); Z3A.33 33 weeks gestation of pregnancy
CPT/HCPCS: 82731

== ENCOUNTER 2020-09-20 08:44 | Observation (INO) | payer OTHER, SELFPAY ==
--- NOTE | 2020-09-20 11:15 | DI.US.S_ITS ---
PROCEDURE: US OB BIOPHYSICAL PROFILE INDICATIONS: pt fell down the stairs OUTSIDE/PRIOR DATING DATA: Last menstrual period (LMP): January 20, 2020 . LMP-based estimated date of delivery (NEREYDA): October 26, 2020 First dating scan (date and location): March 09, 2020, [facility] Estimated date of delivery (NEREYDA) from first dating scan: October 27, 2020 TECHNIQUE: Not performed COMPARISON: None. FINDINGS: General: A single living intrauterine gestation is present. Placenta: Placental position is posterior , without previa. Amniotic fluid index: 11.6 cm, normal range is 5-24 cm. heart rate: 132 beats per minute. Maternal cervical canal: 4.8 cm long. Normal lower limit is 2.5 cm. Biophysical profile: Tone: 2 points. Movement: 2 points. Respiration: 2 points. Largest pocket of fluid: 2 points. IMPRESSION: Single live intrauterine gestation with an 8/8 biophysical profile. Dictated by: Perri Calix M.D. on 09/20/2020 at 12:06 Approved by: Perri Calix M.D. on 09/20/2020 at 12:08
--- NOTE | 2020-09-20 11:46 | PM.OBTRLD ---
Visit Information Visit Information Date of evaluation: 09/20/20 Primary OB Provider: Mishel Enciso On-call OB Provider: Sandra Sena Reason for Evaluation: Yes non-stress test Comments/Additional reasons for admission: Patient is a 39yo @34+6 presenting for evaluation after falling on her bottom while descending a staircase at approx. 7AM this morning. The patient reports that she was walking down the stairs when her compression-stocking clad foot slid from under her, and that she slid the rest of the way on her bottom. She denies any direct abdominal trauma. She denies vaginal bleeding, loss of fluid, or decreased movement, and denies any change in her baseline of contractions, for which she has been on nifedipine for one month with repeat negative FFNs and normal cervical lengths. She has a history of prior CS at term for distress, and of PPROM at 16 weeks in the setting of chorioamnionitis. Vital Signs Vital Signs: 112/75, HR 104 PFSH Medical History Abnormal Pap smear of cervix Advanced maternal age during BRCA gene mutation negative Chorioamnionitis (~04/2019) demise, less than 22 weeks (~05/19/19) GBS (group B streptococcus) infection (~05/19/19) Heavy menstrual period History of loss in prior , currently in second trimester HPV (human papilloma virus) infection (~2004) Irregular heart beat Pre-eclampsia Premature rupture of membranes (~05/19/19) Retained placenta (~05/2019) Screening mammogram for high-risk patient Tachycardia Trauma (~02/2005) Vision disorder Surgical History Anesthesia H/O dilation and curettage (~06/09/19) History of delivery affecting History of colposcopy (~2004) Previous section (~03/23/05) Family History Father Multiple sclerosis Precancerous skin lesion Mother Breast cancer Hyperlipidemia Latex allergy, anaphylaxis Asthma Brother Keratoconus Grandfather Diabetes mellitus History of heart disease Hypertension Hyperlipidemia History of heart bypass surgery Grandmother Diabetes mellitus Pawel's disease Hemochromatosis Heart failure Grandfather Diabetes mellitus History of heart disease Hypertension Hyperlipidemia Grandmother Epilepsy CVA (cerebral vascular accident) Family/Other Asthma Seasonal allergies Eczema of left upper extremity Family/Other Pawel's disease Family/Other Breast cancer Family/Other Diabetes mellitus Gestational diabetes Social History marital status: number of children: 1 household members: spouse and children pets and animals: Yes (X 1 dog) education level: college occupational status: employed current occupational exposures/hazards: No 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
== END 2020-09-20 12:30 | disposition home or self-care (01) ==
PROVIDERS: Admitting Provider Specialist; PCP Physician Assistant; Referring Provider Specialist; Visit Provider Specialist
DX: O47.03 False labor before 37 completed weeks of gestation, third trimester (principal); Z3A.32 32 weeks gestation of pregnancy; W10.9XXA Fall (on) (from) unspecified stairs and steps, initial encounter
CPT/HCPCS: 59025; 59050; 76819; G0378; G0379

== ENCOUNTER → 2020-09-21 10:48 | Outpatient (CLI) | payer OTHER, SELFPAY ==
[2020-09-22 07:57] LABS: Strep Grp B PCR NEG for Grp B Strep
== END ==
PROVIDERS: PCP Physician Assistant; Visit Provider Obstetrics & Gynecology
DX: Z34.83 Encounter for supervision of other normal pregnancy, third trimester (principal); Z3A.35 35 weeks gestation of pregnancy
CPT/HCPCS: 87653

== ENCOUNTER 2020-10-09 15:55 | Outpatient (CLI) | payer OTHER, SELFPAY | END 2020-10-09 16:53 | disposition home or self-care (01) | LOC: LABOR 16:05 → OB 10-11 10:30 | PROVIDERS: PCP Physician Assistant; Referring Provider Obstetrics & Gynecology; Visit Provider Obstetrics & Gynecology | DX: O47.03 False labor before 37 completed weeks of gestation, third trimester (principal); O09.523 Supervision of elderly multigravida, third trimester; Z3A.34 34 weeks gestation of pregnancy | CPT/HCPCS: 59025; G0378; G0379 ==

== ENCOUNTER → 2020-10-16 12:22 | Outpatient (CLI) | payer OTHER, SELFPAY ==
[2020-10-16 13:59] LABS: COVID19 -Nasal RAPID Negative (Negative)
== END ==
PROVIDERS: PCP Physician Assistant; Visit Provider Specialist
DX: Z01.812 Encounter for preprocedural laboratory examination (principal); Z20.822 Contact with and (suspected) exposure to COVID-19
CPT/HCPCS: 87635

== ENCOUNTER 2020-10-17 14:47 | Outpatient (CLI) | payer OTHER, SELFPAY ==
--- NOTE | 2020-10-17 15:28 | PM.OBTRLD ---
Visit Information Visit Information Date of evaluation: 10/17/20 Primary OB Provider: Mishel Enciso On-call OB Provider: Tashia Ashraf Reason for Evaluation: Yes rule out labor Vital Signs Vital Signs: BP 124/87 P 98 T 36.4 [facility] Medical History (Updated 10/17/20 @ 15:32 by Tashia Ashraf MD) Abnormal Pap smear of cervix Advanced maternal age during BRCA gene mutation negative Chorioamnionitis (~04/2019) demise, less than 22 weeks (~05/19/19) GBS (group B streptococcus) infection (~05/19/19) Heavy menstrual period HPV (human papilloma virus) infection (~2004) Irregular heart beat Pre-eclampsia Premature rupture of membranes (~05/19/19) Retained placenta (~05/2019) Screening mammogram for high-risk patient Tachycardia Trauma (~02/2005) Vision disorder Surgical History Anesthesia H/O dilation and curettage (~06/09/19) History of delivery affecting History of colposcopy (~2004) Previous section (~03/23/05) Family History Father Multiple sclerosis Precancerous skin lesion Mother Breast cancer Hyperlipidemia Latex allergy, anaphylaxis Asthma Brother Keratoconus Grandfather Diabetes mellitus History of heart disease Hypertension Hyperlipidemia History of heart bypass surgery Grandmother Diabetes mellitus Pawel's disease Hemochromatosis Heart failure Grandfather Diabetes mellitus History of heart disease Hypertension Hyperlipidemia Grandmother Epilepsy CVA (cerebral vascular accident) Family/Other Asthma Seasonal allergies Eczema of left upper extremity Family/Other Pawel's disease Family/Other Breast cancer Family/Other Diabetes mellitus Gestational diabetes Social History marital status: number of children: 1 household members: spouse and children pets and animals: Yes (X 1 dog) education level: college occupational status: employed current occupational exposures/hazards: No 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 Status: Never smoker second hand exposure: No alcohol intake: never (pre- : very, very rare use = sips) substance use type: does not use Review of Systems Review of Systems Narrative: No leakage of fluid, no S/S PIH, GFM contractions with pelvic pressure Evaluation Evaluation Baseline heart rate: 130 Variability: Moderate (11-25) monitor accelerations: Present monitor decelerations: Absent Contraction Frequency (minutes): 10 Uterine Contraction Intensity: Mild Category of Tracing: Reactive Status: Category l Cervical dilation (cm): 0 Cervical effacement (%): 80 station: -3 Diagnosis, Plan/Disposition Final Diagnosis (1) False labor after 37 weeks of gestation without delivery: Status: Acute Plan/Disposition Plan: home OB Disposition: home
== END 2020-10-17 15:50 | disposition home or self-care (01) ==
LOC: OB 10-20 07:34
PROVIDERS: PCP Physician Assistant; Referring Provider Specialist; Visit Provider Specialist
DX: Z34.83 Encounter for supervision of other normal pregnancy, third trimester (principal); Z3A.38 38 weeks gestation of pregnancy
CPT/HCPCS: 59025; G0378; G0379

== ENCOUNTER 2020-10-19 09:08 | Inpatient (IN) | payer OTHER, SELFPAY ==
[2020-10-19 09:13] VITALS: BP 110/73
[2020-10-19] MEDS: LACTATED RINGERS 1,000 ML 100 ML IV ×5 (09:50→17:16)
[2020-10-19 10:10] LABS: Add Manual Diff / Slide Review NO; Basophils Absolute Auto 0 /uL (0-100); Basophils Percent Auto 0.4 % (0-2); Eosinophils Absolute Auto 100 /uL (0-450); Eosinophils Percent Auto 0.7 % (2-4); Hematocrit 32.9 % (36-46); Hemoglobin 10.9 g/dL (12.0-16.0); Lymphocytes Absolute Auto 1300 /uL (1100-4500); Lymphocytes Percent Auto 14.8 % (25-40); Mean Corpuscular HGB Conc 33.1 % (30-36); Mean Corpuscular Hemoglobin 30.5 PG (26-34); Mean Corpuscular Volume 92.3 fL (80-100); Monocytes Absolute Auto 500 /uL (0-900); Monocytes Percent Auto 5.8 % (3-14); Neutrophils Absolute Auto 6700 /uL (1500-7000); Neutrophils Percent Auto 78.3 % (50-75); Platelet Count 249 X10^3/uL (150-400); Red Blood Cell Count 3.57 X10^6/uL (4.0-5.2); Red Cell Distribution Width 12.5 % (11.6-14.8); White Blood Cell Count 8.5 X10^3/uL (4.5-11.0)
--- NOTE | 2020-10-19 10:30 | P.HPOB_ITS ---
OB HPI Date/Time Date of admission: 10/19/20 Date Patient Seen: 10/19/20 Time Patient Seen: 10:30 History of Present Condition Chief complaint: C Section : 3 Para: 1 Narrative: Marianne Way is a 39 year old female 3 para 1011 who presents for a scheduled repeat section. Her was complicated by contractions. Evaluation Evaluation Baseline heart rate: 135 Variability: Moderate (11-25) monitor accelerations: Present monitor decelerations: Absent Status: Category l Laboratory results: Laboratory Tests 10/19/20 09:50 WBC 8.5 RBC 3.57 L Hgb 10.9 L Hct 32.9 L MCV 92.3 MCH 30.5 MCHC 33.1 RDW 12.5 Plt Count 249 Neut % (Auto) 78.3 H Lymph % (Auto) 14.8 L [place] % (Auto) 5.8 Eos % (Auto) 0.7 L Baso % (Auto) 0.4 Neut # (Auto) 6700 Lymph # (Auto) 1300 Free[place] # (Auto) 500 Eos # (Auto) 100 Baso # (Auto) 0 PFSH Medical History (Updated 10/17/20 @ 15:32 by Tashia Ashraf MD) Abnormal Pap smear of cervix Advanced maternal age during BRCA gene mutation negative Chorioamnionitis (~04/2019) demise, less than 22 weeks (~05/19/19) GBS (group B streptococcus) infection (~05/19/19) Heavy menstrual period HPV (human papilloma virus) infection (~2004) Irregular heart beat Pre-eclampsia Premature rupture of membranes (~05/19/19) Retained placenta (~05/2019) Screening mammogram for high-risk patient Tachycardia Trauma (~02/2005) Vision disorder Surgical History Anesthesia H/O dilation and curettage (~06/09/19) History of delivery affecting History of colposcopy (~2004) Previous section (~03/23/05) Family History Father Multiple sclerosis Precancerous skin lesion Mother Breast cancer Hyperlipidemia Latex allergy, anaphylaxis Asthma Brother Keratoconus Grandfather Diabetes mellitus History of heart disease Hypertension Hyperlipidemia History of heart bypass surgery Grandmother Diabetes mellitus Pawel's disease Hemochromatosis Heart failure Grandfather Diabetes mellitus History of heart disease Hypertension Hyperlipidemia Grandmother Epilepsy CVA (cerebral vascular accident) Family/Other Asthma Seasonal allergies Eczema of left upper extremity Family/Other Pawel's disease Family/Other Breast cancer Family/Other Diabetes mellitus Gestational diabetes Social History marital status: number of children: 1 household members: spouse and children pets and animals: Yes (X 1 dog) education level: college occupational status: employed current occupational exposures/hazards: No 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 Status: Never smoker second hand exposure: No alcohol intake: never (pre- : very, very rare use = sips) substance use type: does not use Meds Home Medications and Allergies Home Medications Medication Instructions Recorded Confirmed Type prenat.vits,gilberto,crl-yopm-tbhsq 1 tab PO DAILY 03/25/20 10/06/20 History nifedipine 10 mg capsule 10 mg PO BID #20 cap 08/18/20 10/06/20 Rx nifedipine 30 mg tablet,extended See Rx Instructions .ROUTE 10/06/20 10/06/20 Rx release .COMPLEX #270 tab nifedipine 10/19/20 History Allergies Allergy/AdvReac Type Severity Reaction Status Date / Time Latex, Natural Rubber AdvReac Severe Mother : Verified 10/06/20 15:15 anaphylaxis re Latex - would like to avoid that! aspirin AdvReac Intermediate skin was Verified 10/06/20 15:15 on fire and severe flu-like feeling adhesive tape AdvReac Mild Hives Verified 10/06/20 15:15 Exam Vital Signs (past 8 hours): - 10/19/20 09:13 Blood Pressure 110/73 Narrative Exam Narrative: HEENT: No thyromegaly, no anterior cervical or supraclavicular lymphadenopathy. Lungs:Clear to auscultation bilaterally, no wheezes. Cardiovascular: Regular rate and rhythm, no murmurs, rubs, or gallops. Abdomen: Well-healed Pfannenstiel. Fundal height: 38 cm, estimated weight 7 lb Extremities: Trace edema, 1+ DTRs Objective Labs Result Diagrams: 10/19/20 09:50 Labs: Laboratory Results - last 24 hr 10/19/20 09:50 WBC 8.5 RBC 3.57 L Hgb 10.9 L Hct 32.9 L MCV 92.3 MCH 30.5 MCHC 33.1 RDW 12.5 Plt Count 249 Neut % (Auto) 78.3 H Lymph % (Auto) 14.8 L Freeborn % (Auto) 5.8 Eos % (Auto) 0.7 L Baso % (Auto) 0.4 Neut # (Auto) 6700 Lymph # (Auto) 1300 Freeborn # (Auto) 500 Eos # (Auto) 100 Baso # (Auto) 0 Assessment and Plan Assessment and Plan Assessment and Plan narrative: Assessment: 39-year-old 3 para 1011 at 39 weeks gestation with a previous section Plan: Repeat section Time Spent with Patient Total time spent with greater than 50% in coordination of care (as documented) at patient's floor/unit and/or counseling patient:: 15-24 minutes
--- NOTE | 2020-10-19 10:33 | PM.PREOP ---
Pre-operative Note COVID-19 COVID-19 status: Negative Result date/Date tested (Pos, Neg/Pending): 10/16/20 Interval Note History & Physical reviewed/Exam performed by Physician: Yes Changes to H&P: No H&P completed within 30 days and has changed as indicated here:: 10/19/20
[2020-10-19] MEDS: CEFAZOLIN 2 GM/100 ML FROZ.PIGGY IV (10:46)
--- NOTE | 2020-10-19 11:25 | SUR.OPER ---
Supine on Padded OR bed, head on pillow, safety belt at thigh, arms secured on padded arm boards at <90 degrees abduction. Bump under right buttock. Legs uncrossed with pillow under knees, tape over blanket to lower legs.
--- NOTE | 2020-10-19 11:27 | SUR.OPER ---
Viable male delivered at 1119. Cord blood and placenta to [facility].
[2020-10-19 11:58] VITALS: BP 108/69; PULSE 84; RESP 12; TEMP 36.6; O2SAT 100
[2020-10-19 12:03] VITALS: BP 106/70; PULSE 81; RESP 18; O2SAT 98
--- NOTE | 2020-10-19 12:05 | PM.GYNOP.1 ---
Operative Date/Time/Diagnoses Date of procedure: 10/19/20 Time of procedure: 12:05 Pre-op diagnosis: 39 weeks Previous C section Post-op diagnosis: same Procedure & Clinicians Procedure: Procedures Operation Date: 10/19/20 10:30 Actual Procedures Side Surgeon p Repeat Section Mishel Enciso MD Indications: 39 weeks gestation Previous C section Surgeon: Mishel Enciso Dice Table Operator: Sandra Sena Anesthesia Type: Spinal Operative Notes Findings: Live male infant Normal uterus, tubes and ovaries Closure Type: primary Specimen(s): other (cord bloods, placenta) Applied: catheter Estimated blood loss (mL): 500 Blood products transfused: none Procedure in detail: The patient was taken to the operating room where she was placed in the seated position. Spinal anesthesia with Duramorph was administered. The patient was then placed in the dorsal supine position with a leftward tilt. She was prepped and draped in the usual sterile fashion. A timeout was performed. After spinal analgesia was found to be adequate, a Pfannenstiel skin incision was made through the previous incision and carried through to the underlying layer fascia. The fascia was nicked in the midline, and the incision extended bilaterally with the Hu scissors. The superior aspect of the fascial incision was grasped with a Bellevue clamps, elevated, and the underlying rectus muscles dissected off sharply and bluntly. Attention was then turned to the inferior aspect of this incision which in a similar fashion was grasped with a Bellevue clamps, elevated, and the underlying rectus muscles dissected off sharply and bluntly. The rectus muscles were in the midline. The peritoneum was identified, grasped between 2 hemostats, and entered sharply with the Metzenbaum scissors. This incision was extended superiorly and inferiorly with good visualization of the bladder. The bladder blade was inserted. The vesicouterine peritoneum was identified, grasped with the pickup, and entered sharply with the Metzenbaum scissors. This incision was extended bilaterally, and the bladder flap was created digitally. The bladder blade was reinserted. The lower uterine segment was incised in a transverse fashion with the scalpel. Upon entering the amniotic sac there was moderate amount of clear amniotic fluid. The infant's head was delivered with vacuum assistance. The nose and mouth were suctioned with bulb suction. The remainder of the body delivered without difficulty. The cord was double clamped and cut. The was handed off to waiting RN and RT. The placenta was delivered manually. The uterus was cleared of all clots and debris. The uterine incision was repaired with #1 chromic in a running interlocking fashion, and a second layer the same suture was used for an imbricating layer. Hemostasis was achieved. The tubes and ovaries were examined and were found to be normal. The gutters were cleared of all clots and debris. The bladder flap was reapproximated using 2-0 Vicryl in a running fashion. The parietal peritoneum was closed using 2-0 Vicryl in a running fashion. The fascia was reapproximated using 0 Vicryl in a running fashion. The subcutaneous layer was copiously irrigated with warm normal saline. 5 simple interrupted sutures of 3-0 Vicryl were placed to reapproximate the subcutaneous layer. The skin was closed with 4-0 Biosyn in a subcuticular fashion. Steri-Strips were placed. An Aquacell dressing was placed. The uterus was expressed of a small amount of old blood. Sponge, lap, and instrument counts were correct x-2. The patient tolerated the procedure well, and was taken to PACU in stable condition. The assistant professor of spanish during this procedure retracted while the fascia was being entered and did the opposite side of the fascia. They retracted with a bladder blade and the Martinez retractor while getting into the peritoneum and the uterus. They assisted with delivery of the by giving fundal pressure. They assisted with closure by retracting and following with the suture. They closed half of the fascia on the contralateral side. They retracted in the subcutaneous layer well putting in interrupted sutures. The assistant professor of spanish was vital to this procedure. Complications: none Post-operative Condition: stable Disposition: PACU Plan for aftercare: To the Center after Recovery
[2020-10-19 12:08] VITALS: BP 105/72; PULSE 80; RESP 12; O2SAT 100
[2020-10-19 12:13] VITALS: BP 103/72; PULSE 77; PULSE 82; RESP 10; RESP 13; TEMP 36.1; O2SAT 100; O2SAT 98
[2020-10-19 12:18] VITALS: BP 107/71; PULSE 78; RESP 13; TEMP 36.1; O2SAT 100
[2020-10-19] MEDS: OXYTOCIN PREMIX 30 UNIT/500 ML PLAST..BAG 500 UNIT IV (14:05)
[2020-10-19] MEDS: KETOROLAC 30 MG/ML VIAL IV ×2 (17:16→23:30)
[2020-10-20] MEDS: KETOROLAC 30 MG/ML VIAL IV (05:00)
[2020-10-20 06:58] LABS: Hemoglobin 6.8 g/dL (12.0-16.0)
[2020-10-20 06:59] LABS: Hematocrit 20.6 % (36-46)
[2020-10-20] MEDS: DOCUSATE 250 MG CAPSULE PO (08:57)
[2020-10-20] MEDS: PRENATAL VIT,CALC/IRON/FOLIC 1 TABLET 1 TAB PO (08:57)
[2020-10-20] MEDS: IBUPROFEN 600 MG TABLET PO ×3 (10:23→22:56)
[2020-10-20 16:34] VITALS: TEMP 36.6
--- NOTE | 2020-10-20 18:14 | P.PNOB_ITS ---
Subjective - OB Subjective Patient comments: no complaints, pain well controlled, incisional pain, tolerating diet, flatus present and other (Voided without the catheter) baby status: doing well and nursing well feeding status: exclusively breast feeding Date Patient Seen: 10/20/20 Time Patient Seen: 18:14 Interval history: POD #1 s/p R LTCS Exam Vital Signs (past 8 hours): - 10/20/20 16:34 Temperature 97.8 F Oxygen Delivery Method Room Air Narrative Exam Narrative: Generally: Patient is sitting up in bed, holding , no a cute distress Lungs: Clear to auscultation bilaterally Cardiovascular: Regular rate and rhythm Fundal height: U -2 Incision: Clean dry and intact with Aquacel dressing Extremities: Trace edema, negative Homans Objective Labs Result Diagrams: 10/20/20 05:35 Labs: Laboratory Results - last 24 hr 10/20/20 05:35 Hgb 6.8 L* Hct 20.6 L* Assessment & Plan Plan day: 1 plan OB: routine postop care Comments: Postoperative anemia Time Spent With Patient Time: Total time spent is greater than 50% in coordination of care (as documented) at patient's floor/unit and/or counseling patient: Time with patient: 15-24 minutes
[2020-10-21] MEDS: ACETAMINOPHEN 325 MG TABLET 650 MG PO (01:58)
[2020-10-21] MEDS: IBUPROFEN 600 MG TABLET PO (04:43)
[2020-10-21 09:30] VITALS: BP 94/68; PULSE 94; RESP 17; TEMP 36.6
--- NOTE | 2020-10-23 14:04 | PM.OBDS.1 ---
Discharge Providers Provider Date of admission: 10/19/20 09:08 Discharge Date: 10/21/20 Primary care physician: Ekta Guzman PA-C Consults: 10/19/20 13:28 Consult to Ancillary Specialist Routine Comment: Discharge provider: Mishel Enciso MD Summary Hospital Course Date Patient Seen: 10/21/20 Time Patient Seen: 07:45 Procedures: Repeat low-transverse section Spinal anesthesia Acute blood loss anemia hemorrhage Hospital Course: Patient is a 39-year-old 3 para 2011 who presented on October 19, 2020 for a scheduled repeat low-transverse section. She underwent this procedure without complication. Her postoperative course was unremarkable. She is discharged home on postop day # 2. She is tolerating a diet. She is emptying her bladder without catheter. She has no nausea and vomiting. Her pain is well controlled. is going well. She had a hemorrhage on postop day # 0 of approximately a 1000 cc. Her bleeding has been stable and her vital signs have been stable since. Peripartum Data Infant Delivery Method: Section Laceration Description: None Episiotomy description: None Procedures: Repeat low-transverse section Spinal anesthesia complications: uterine atony Halsey 1: Gender: Male Disposition of : home Status at Discharge Cognitive/behavioral status at discharge: oriented Functional status at discharge: independent ambulation Overall status at discharge: patient is progressing back to baseline Time Spent with Patient Time attestation: Total time spent providing and/or coordinating discharge services: Time spent: Less than 30 minutes Objective Labs Result Diagrams: 10/20/20 05:35 Exam Vital Signs (past 8 hours): Oxygen Delivery Method Room Air Narrative Exam Narrative: Generally: Patient is sitting up in bed, holding infant, no acute distress Lungs: Clear to auscultation bilaterally Cardiovascular: Regular rate and rhythm Fundus: Firm at U -1 Abdomen: Soft, good bowel sounds Incision: Clean dry and intact with Aquacel dressing Extremities: Negative Homans, trace edema Discharge Plan Discharge Plan Patient Disposition: Home Provider Discharge Comment: Call with fever, chills, redness or drainage around the incision, or bleeding vaginally more than a pad in an hour Ibuprofen 600 mg every 6 hours Tylenol 650 mg every 6 hours Add Slow Fe Discharge orders & Medications Prescriptions: New oxycodone 5 mg tablet 5 mg PO Q4H PRN (Reason: pain) Qty: 20 RF: 0 Continued prenat.vits,gilberto,[id number] Tablet 1 tab PO DAILY RF: 0 Discontinued nifedipine 10 mg capsule 10 mg PO BID Qty: 20 RF: 3 nifedipine 30 mg tablet extended release See Rx Instructions .ROUTE .COMPLEX Qty: 270 RF: 0 nifedipine 10 mg capsule RF: 0 Follow up/Referrals: Mishel Enciso MD [Physician] - 1 Week (1 week Aquacel removal and 6 wk PP visit on 10/26/2020 @ [address] Enciso) Diet/Activity/Treatments Diet: Regular Activity: No heavy lifting for 2 wks, nothing more than baby Skin/Wound/Dressing Care Report to your healthcare provider any signs of infection, such as:: chills, fever, increased pain, unusual drainage and unusual redness Dressing: Do not remove Visit Report/Discharge Packet Instructions: DI for , DI for Prescription Opioid Use Stand Alone Forms: Discharge: Care Discharge Data Primary Care Provider: Ekta Guzman
== END 2020-10-21 11:45 | disposition home or self-care (01) | DRG 787 ==
PROVIDERS: Admitting Provider Obstetrics & Gynecology; PCP Physician Assistant; Referring Provider Obstetrics & Gynecology; Visit Provider Obstetrics & Gynecology
PROC: 10D00Z1 Extraction of Products of Conception, Low, Open Approach (ICD-10-PCS; CPT 59514; principal; 2020-10-19 10:30)
DX: O75.82 Onset (spontaneous) of labor after 37 completed weeks of gestation but before 39 completed weeks gestation, with delivery by (planned) cesarean section (principal); O72.1 Other immediate postpartum hemorrhage; D62 Acute posthemorrhagic anemia; Z3A.39 39 weeks gestation of pregnancy; Z37.0 Single live birth
CPT/HCPCS: 36415; 59050; 59510; 59514; 85014; 85018; 85025; 86850; 86900; 86901; J0690; J1885; J2274; J2405; J2590

== ENCOUNTER → 2020-12-21 14:48 | Outpatient (CLI) | payer OTHER, SELFPAY ==
--- NOTE | 2020-12-21 14:49 | DI.US.S_ITS ---
LIMITED ULTRASOUND OF LEFT BREAST: 12/21/2020 CLINICAL: Palpable left breast lump. Comparison is made to exam dated: 02/24/2020 [facility]. Color flow and real-time ultrasound of the left breast were performed on the areas of interest. There is a 1.1 cm x 0.8 cm x 0.6 cm oval cyst in the left breast at 2 o'clock anterior depth. This oval cyst is of mixed echogenicity with internal echoes. This correlates as palpated. Color flow imaging demonstrates that there is no vascularity present. There also is a 1.3 cm x 0.8 cm x 1.1 cm oval cyst in the left breast at 2 o'clock middle depth. This oval cyst is hypoechoic with a well-defined boundary and internal echoes. Color flow imaging demonstrates that there is no vascularity present. IMPRESSION: PROBABLY BENIGN The 1.1 cm x 0.8 cm x 0.6 cm oval cyst in the left breast at 2 o'clock anterior depth is probably benign. Findings may represent a complicated cyst, a galactocele, or possible developing abscess. Clinical followup is recommended. A follow-up ultrasound in 3 months is recommended to demonstrate resolution. The 1.3 cm x 0.8 cm x 1.1 cm oval cyst in the left breast at 2 o'clock middle depth is consistent with a complicated cyst or galactocele and is probably benign. A follow-up ultrasound in 3 months is recommended. A follow-up ultrasound in 3 months is recommended. Future imaging is recommended as follows: 12/21/2022 screening mammogram. This exam was interpreted at Station ID: [id number]. Electronically Signed By: Albino jason/:12/21/2020 17:31:03 letter sent: Followup Recommended Ultrasound BI-RADS: 3 Probably benign
== END ==
PROVIDERS: PCP Physician Assistant; Referring Provider Family Medicine; Visit Provider Family Medicine
DX: O92.79 Other disorders of lactation (principal)
CPT/HCPCS: 76642

== ENCOUNTER → 2021-03-23 15:54 | Outpatient (CLI) | payer OTHER, SELFPAY ==
--- NOTE | 2021-03-23 15:56 | DI.US.S_ITS ---
LIMITED ULTRASOUND OF LEFT BREAST: 03/23/2021 CLINICAL: Patient returns for additional imaging for 2 masses in the left breast. 3mo followup. Comparison is made to exams dated: 12/21/2020 ultrasound and 02/24/2020 [facility]. Color flow and real-time ultrasound of the left breast were performed. Vu scale images of the real-time examination were reviewed. There is a 1.1 cm x 0.8 cm x 0.6 cm oval cyst in the left breast at 2 o'clock anterior depth. This oval cyst is of mixed echogenicity with internal echoes. This correlates as palpated. Color flow imaging demonstrates that there is no vascularity present. There also is a 1.3 cm x 0.8 cm x 1.1 cm oval cyst in the left breast at 2 o'clock middle depth. This oval cyst is hypoechoic with a well-defined boundary and internal echoes. Color flow imaging demonstrates that there is no vascularity present. IMPRESSION: PROBABLY BENIGN The 1.1 cm x 0.8 cm x 0.6 cm oval cyst in the left breast at 2 o'clock anterior depth is unchanged and is probably benign. A follow-up ultrasound in 3 months is recommended. The 1.3 cm x 0.8 cm x 1.1 cm oval cyst in the left breast at 2 o'clock middle depth is consistent with a complicated cyst is unchanged and is probably benign. A follow-up ultrasound in 3 months is recommended. This exam was interpreted at Station ID: [id number]. Electronically Signed By: Ruperto Tobias M.D. jr/:03/23/2021 17:21:11 letter sent: Followup Recommended Ultrasound BI-RADS: 3 Probably benign
== END ==
PROVIDERS: PCP Physician Assistant; Referring Provider Registered Nurse Diabetes Educator; Visit Provider Registered Nurse Diabetes Educator
DX: R92.8 Other abnormal and inconclusive findings on diagnostic imaging of breast (principal); O92.79 Other disorders of lactation; N60.02 Solitary cyst of left breast
CPT/HCPCS: 76642

== ENCOUNTER → 2021-06-28 15:22 | Outpatient (CLI) | payer OTHER, SELFPAY ==
[2021-06-28 15:58] LABS: Add Manual Diff / Slide Review NO; Basophils Absolute Auto 100 /uL (0-100); Basophils Percent Auto 1.1 % (0-2); Eosinophils Absolute Auto 100 /uL (0-450); Eosinophils Percent Auto 2.8 % (2-4); Hematocrit 39.5 % (36-46); Hemoglobin 13.4 g/dL (12.0-16.0); Lymphocytes Absolute Auto 2100 /uL (1100-4500); Lymphocytes Percent Auto 39.8 % (25-40); Mean Corpuscular HGB Conc 33.9 % (30-36); Mean Corpuscular Hemoglobin 31.5 PG (26-34); Mean Corpuscular Volume 92.9 fL (80-100); Monocytes Absolute Auto 300 /uL (0-900); Monocytes Percent Auto 6.3 % (3-14); Neutrophils Absolute Auto 2700 /uL (1500-7000); Platelet Count 277 X10^3/uL (150-400); Red Blood Cell Count 4.25 X10^6/uL (4.0-5.2); Red Cell Distribution Width 12.2 % (11.6-14.8); White Blood Cell Count 5.4 X10^3/uL (4.5-11.0)
[2021-06-28 16:24] LABS: Alanine Aminotransferase 16 IU/L (<35); Albumin 4.4 g/dL (3.5-5.0); Albumin Globulin Ratio 1.5 (1.0-2.8); Alkaline Phosphatase 122 U/L (38-126); Aspartate Aminotransferase 26 IU/L (14-36); BUN Creatinine Ratio 26.4 (6-22); Bilirubin Total 0.8 mg/dL (0.2-1.3); Blood Urea Nitrogen 14 mg/dL (7-17); Carbon Dioxide 32 mmol/L (22-32); Chloride 101 mmol/L (98-107); Cholesterol 202 mg/dL (140-199); Estimated Glomerular Filt Rate > 60.0 mL/min (>60); Globulin 2.9 g/dL (1.7-4.1); Glucose 82 mg/dL (70-100); HDL Cholesterol 86 mg/dL (40-60); HEMOLYSIS < 15 (0-50); LDL Cholesterol Calculated 105 mg/dL (<100); Potassium 3.9 mmol/L (3.4-5.1); Sodium 139 mmol/L (137-145); Total Protein 7.3 g/dL (6.3-8.2); Triglycerides 56 mg/dL (35-150)
[2021-06-28 16:36] LABS: Free T4, Direct Thyroxine 0.69 ng/dL (0.78-2.19)
[2021-06-28 16:50] LABS: Thyroid Stimulating Hormone 5.26 uIU/mL (0.47-4.68)
== END ==
PROVIDERS: PCP Registered Nurse; Referring Provider Registered Nurse; Visit Provider Registered Nurse
DX: D64.9 Anemia, unspecified (principal); E78.5 Hyperlipidemia, unspecified; Z00.00 Encounter for general adult medical examination without abnormal findings
CPT/HCPCS: 36415; 80053; 80061; 84439; 84443; 85025

== ENCOUNTER → 2021-06-28 15:40 | Outpatient (CLI) | payer OTHER, SELFPAY ==
--- NOTE | 2021-06-28 15:41 | DI.US.S_ITS ---
ULTRASOUND OF LEFT BREAST: 06/28/2021 CLINICAL: Patient returns today to evaluate a focal asymmetry in the left breast. Comparison is made to exams dated: 12/21/2020 ultrasound, 03/23/2021 ultrasound, and 02/24/2020 [facility]. Color flow and real-time ultrasound of the left breast were performed. Vu scale images of the real-time examination were reviewed. There is a new 0.7 cm x 0.5 cm x 0.6 cm irregular mass in the left breast at 1 o'clock middle depth. This irregular mass is hypoechoic with posterior acoustic shadowing. Color flow imaging demonstrates that there is no vascularity present. There also is a 0.6 cm x 0.9 cm x 0.7 cm oval partially solid mass in the left breast at 2 o'clock middle depth. This oval partially solid mass is of mixed echogenicity with a well-defined boundary and internal echoes. Color flow imaging demonstrates that there is no vascularity present. Additionally, there is a benign 1.1 cm x 0.8 cm x 0.6 cm oval cyst in the left breast at 2 o'clock anterior depth. This oval cyst is of mixed echogenicity with internal echoes. This correlates as palpated. Color flow imaging demonstrates that there is no vascularity present. IMPRESSION: SUSPICIOUS OF MALIGNANCY The new 0.7 cm x 0.5 cm x 0.6 cm irregular mass in the left breast at 1 o'clock middle depth is at a low suspicion for malignancy. An ultrasound guided biopsy is recommended. The 0.6 cm x 0.9 cm x 0.7 cm oval partially solid mass in the left breast at 2 o'clock middle depth has a persistent solid component suspicious for malignancy. An ultrasound guided biopsy is recommended. The previously described 1.1 cm x 0.8 cm x 0.6 cm oval simple cyst in the left breast at 2 o'clock anterior depth is benign. This exam was interpreted at Station ID: [id number]. Electronically Signed By: Ruperto Tobias M.D. jr/:06/29/2021 11:35:51 letter sent: Biopsy Required Ultrasound BI-RADS: 4a Low suspicion for malignancy
== END ==
PROVIDERS: PCP Registered Nurse; Referring Provider Registered Nurse; Visit Provider Registered Nurse
DX: R92.8 Other abnormal and inconclusive findings on diagnostic imaging of breast (principal); N63.21 Unspecified lump in the left breast, upper outer quadrant; N60.02 Solitary cyst of left breast; D64.9 Anemia, unspecified; E78.5 Hyperlipidemia, unspecified
CPT/HCPCS: 36415; 76642; 80053; 80061; 84439; 84443; 85025

== ENCOUNTER → 2021-07-16 12:31 | Outpatient (CLI) | payer OTHER, SELFPAY ==
--- NOTE | 2021-07-16 12:32 | DI.US.S_ITS ---
ULTRASOUND OF LEFT BREAST: 07/16/2021 CLINICAL: Patient returns today to evaluate two focal asymmetries in the left breast. Comparison is made to exams dated: 06/28/2021 ultrasound, 03/23/2021 ultrasound, 12/21/2020 ultrasound, and 02/24/2020 [facility]. Color flow and real-time ultrasound of the left breast were performed. Vu scale images of the real-time examination were reviewed. Redemonstration of previously described new irregular mass in the left breast at 2 o'clock middle depth 3 cm from the nipple. This irregular mass is hypoechoic with posterior acoustic shadowing. Color flow imaging demonstrates that there is no vascularity present. This has not changed significantly. There also is an oval partially solid mass in the left breast at 2 o'clock middle depth 2 cm from the nipple. This oval partially solid mass is of mixed echogenicity with a well-defined boundary and internal echoes. This abnormality is not significantly changed. Color flow imaging demonstrates that there is no vascularity present. There is mild, diffusely increased vascularity of the upper outer quadrant of the left breast that is new since prior study and patient reports new left breast pain without palpable masses. This is reported to be similar to her previous episode of mastitis. No organized fluid collections. No skin thickening. No nipple discharge. There is no ductal dilatation. IMPRESSION: SUSPICIOUS OF MALIGNANCY Redemonstration of the irregular mass in the left breast at 2 o'clock middle depth that is at a low suspicion for malignancy. An ultrasound guided biopsy is recommended. The oval partially solid mass in the left breast at 2 o'clock middle depth is consistent with a complicated cyst and is suspicious of malignancy. A biopsy is also recommended. However, the patient reports new onset of significant left breast pain in the upper outer quadrant that encompasses region of planned biopsy that was initially scheduled for today. There is associated hyperemia without focal abscess or skin changes at this time. The patient says this is similar to her symptoms prior to onset of mastitis. Because of these new symptoms and mild hyperemia of the breast, the biopsy was cancelled. The patient is to return to her referring clinical provider for a course of antibiotics and will return of biopsy in one month. A prebiopsy scan will be performed at that time to confirm findings. Also, patient was instructed to return sooner if development of any clinically suspicious findings in the interim. Findings and recommendations were discussed with the patient during today's examination. This exam was interpreted at Station ID: [id number]. Electronically Signed By: Jeovany Espana M.D. aty/:07/16/2021 17:34:16 letter sent: Biopsy Required Ultrasound BI-RADS: 4a Low suspicion for malignancy
== END ==
PROVIDERS: PCP Registered Nurse; Referring Provider Registered Nurse Diabetes Educator; Visit Provider Registered Nurse Diabetes Educator
DX: R92.8 Other abnormal and inconclusive findings on diagnostic imaging of breast; N63.21 Unspecified lump in the left breast, upper outer quadrant; N64.4 Mastodynia; O92.79 Other disorders of lactation
CPT/HCPCS: 76642; 87070; 87205

== ENCOUNTER → 2021-07-16 14:34 | Outpatient (CLI) | payer OTHER, SELFPAY | PROVIDERS: PCP Registered Nurse; Visit Provider Family Medicine | DX: O92.79 Other disorders of lactation (principal) | CPT/HCPCS: 87070; 87075; 87205 ==

== ENCOUNTER → 2021-07-26 13:24 | Outpatient (CLI) | payer OTHER, SELFPAY ==
[2021-07-26 14:42] LABS: HEMOLYSIS < 15 (0-50); Iron 82 ug/dL (37-170)
[2021-07-26 14:56] LABS: Percent Iron Saturation 27 % (15-50); Total Iron Binding Capacity 306 ug/dL (265-497); Transferrin 238 mg/dL (206-381)
[2021-07-26 14:59] LABS: Free T3, Triiodothyronine Free 3.86 pg/mL (2.77-5.27); Free T4, Direct Thyroxine 0.87 ng/dL (0.78-2.19)
[2021-07-26 15:13] LABS: Thyroid Stimulating Hormone 2.91 uIU/mL (0.47-4.68)
[2021-07-26 15:17] LABS: Ferritin 21 ng/mL (6-137)
[2021-07-27 05:41] LABS: Thyroid Peroxidase Antibodies <8 IU/mL (0-34)
[2021-07-27 14:35] LABS: Anti Thyroglobulin Antibody <1.0 IU/mL (0.0-0.9)
== END ==
PROVIDERS: PCP Registered Nurse; Referring Provider Family Medicine; Visit Provider Family Medicine
DX: D64.9 Anemia, unspecified (principal); E03.9 Hypothyroidism, unspecified
CPT/HCPCS: 36415; 82728; 83540; 83550; 84439; 84443; 84481; 86376; 86800

== ENCOUNTER → 2021-08-16 13:17 | Outpatient (CLI) | payer OTHER, SELFPAY ==
--- NOTE | 2021-08-16 | DI.US.S_ITS ---
ULTRASOUND OF LEFT BREAST: 08/16/2021 CLINICAL: Patient returns today to evaluate an asymmetry in the left breast. Scheduled as biopsy, biopsy not performed. Comparison is made to exams dated: 07/16/2021 ultrasound, 06/28/2021 ultrasound, 03/23/2021 ultrasound, 12/21/2020 ultrasound, and 02/24/2020 [facility]. Color flow and real-time ultrasound of the left breast were performed on the areas of interest. Vu scale images of the real-time examination were reviewed. The irregular mass in the left breast at 2 o'clock middle depth 3 cm from the nipple is less conspicuous or no longer seen. The oval partially solid mass in the left breast at 2 o'clock middle depth 2 cm from the nipple is less conspicous or no longer seen. There is persistent ill defined shadowing without associated etiology. This also appears less conspicuous. Patient reports resolution of previous (initial) palpable abnormalities in this region with no current symptoms or palpable abnormalities. No organized fluid collections. No skin thickening. No nipple discharge. There is no ductal dilatation. IMPRESSION: PROBABLY BENIGN A follow-up ultrasound in 6 weeks is recommended. Findings and recommendations were discussed in detail with the patient at the time of the examination and all questions were answered. This exam was interpreted at Station ID: [id number]. Electronically Signed By: Kieran crain/:08/16/2021 16:28:21 letter sent: Followup Recommended Ultrasound BI-RADS: 3 Probably benign
== END ==
PROVIDERS: PCP Registered Nurse; Referring Provider Registered Nurse Diabetes Educator; Visit Provider Registered Nurse Diabetes Educator
DX: N63.21 Unspecified lump in the left breast, upper outer quadrant (principal); R92.8 Other abnormal and inconclusive findings on diagnostic imaging of breast
CPT/HCPCS: 76642

== ENCOUNTER → 2021-09-28 14:05 | Outpatient (CLI) | payer OTHER, SELFPAY ==
--- NOTE | 2021-09-28 14:06 | DI.US.S_ITS ---
LIMITED ULTRASOUND OF LEFT BREAST: 09/28/2021 CLINICAL: Patient returns for a 6 week follow up of the left breast. Comparison is made to exams dated: 08/16/2021 ultrasound, 07/16/2021 ultrasound, 06/28/2021 ultrasound, 03/23/2021 ultrasound, 12/21/2020 ultrasound, and 02/24/2020 [facility]. Color flow and real-time ultrasound of the left breast 2 o'clock region were performed. Vu scale images of the real-time examination were reviewed. There is a 0.6 cm x 0.3 cm x 0.3 cm irregular decompressed cyst in the left breast at 2 o'clock middle depth 2 cm from the nipple. This irregular cyst is hypoechoic. This abnormality has decreased in size and correlates with prior ultrasound findings. Color flow imaging demonstrates that there is no vascularity present. IMPRESSION: BENIGN The 0.6 cm x 0.3 cm x 0.3 cm irregular cyst in the left breast has decreased considerably in size, is consistent with a decompressed complicated cyst and is benign. A 2 year screening mammogram is recommended. Findings and recommendations were conveyed to the patient at time of exam. This exam was interpreted at Station ID: [id number]. Electronically Signed By: Krysten perez/:09/28/2021 16:49:26 letter sent: Normal Exam Ultrasound BI-RADS: 2 Benign
--- NOTE | 2021-09-28 14:06 | DI.US.S_ITS ---
LIMITED ULTRASOUND OF RIGHT BREAST: 09/28/2021 CLINICAL: Palpable right breast lump, now resolved. No prior exams were available for comparison. Ultrasound of the right breast 2 o'clock region was performed. Vu scale images of the real-time examination were reviewed. No significant abnormalities were seen sonographically in the right breast. Specifically, no finding to correspond to the patient's palpable abnormality. IMPRESSION: NEGATIVE There is no sonographic correlate to the patient's palpable abnormality and no evidence of malignancy. Return to annual mammogram screening schedule is recommended. Findings and recommendations were conveyed to the patient at time of exam. This exam was interpreted at Station ID: [id number]. Electronically Signed By: Krysten perez/:09/28/2021 16:50:32 Entry: - 09/29/2021 09:05:13 Ultrasound BI-RADS: 1 Negative
== END ==
PROVIDERS: PCP Registered Nurse; Referring Provider Registered Nurse; Visit Provider Registered Nurse
DX: R92.8 Other abnormal and inconclusive findings on diagnostic imaging of breast (principal); N63.12 Unspecified lump in the right breast, upper inner quadrant; N60.02 Solitary cyst of left breast
CPT/HCPCS: 76642

== ENCOUNTER → 2021-11-26 14:26 | Outpatient (CLI) | payer OTHER, SELFPAY | PROVIDERS: PCP Registered Nurse; Visit Provider Family Medicine | DX: N89.8 Other specified noninflammatory disorders of vagina (principal); R87.619 Unspecified abnormal cytological findings in specimens from cervix uteri | CPT/HCPCS: 87210 ==

== ENCOUNTER → 2021-12-01 16:11 | Outpatient (CLI) | payer OTHER, SELFPAY ==
[2021-12-01 17:22] LABS: Free T3, Triiodothyronine Free 3.33 pg/mL (2.77-5.27); Free T4, Direct Thyroxine 1.23 ng/dL (0.78-2.19)
[2021-12-01 17:36] LABS: Thyroid Stimulating Hormone 1.43 uIU/mL (0.47-4.68)
== END ==
PROVIDERS: PCP Registered Nurse; Referring Provider Family Medicine; Visit Provider Family Medicine
DX: R79.89 Other specified abnormal findings of blood chemistry (principal)
CPT/HCPCS: 36415; 84439; 84443; 84481

== ENCOUNTER → 2022-01-14 12:46 | Outpatient (CLI) | payer OTHER, SELFPAY ==
--- NOTE | 2022-01-14 12:49 | DI.MG.S_ITS ---
BILATERAL DIGITAL DIAGNOSTIC MAMMOGRAM 3D/2D: 01/14/2022 CLINICAL: Right breast pain. Baseline. Comparison is made to exams dated: 09/28/2021 ultrasound, 09/28/2021 ultrasound, 06/28/2021 ultrasound, 12/21/2020 ultrasound, and 02/24/2020 [facility]. The tissue of both breasts is extremely dense, which lowers the sensitivity of mammography. No significant masses, calcifications, or other findings are seen in either breast. IMPRESSION: NEGATIVE There is no abnormality seen in the right breast to correspond with the diffuse pain, however, clinical followup is recommended. There is no mammographic evidence of malignancy. A 1 year screening mammogram is recommended. This exam was interpreted at Station ID: [id number]. NOTE: For mammograms, a report in lay terms will be sent to the patient. Approximately 15% of breast malignancies will not be visualized mammographically. In the management of a palpable breast mass, a negative mammogram must not discourage biopsy of a clinically suspicious lesion. Electronically Signed By: Albino jason/:01/14/2022 13:51:55 letter sent: Clinical Evaluation ACR BI-RADS Category 1: Negative [id number]
== END ==
PROVIDERS: PCP Family Medicine; Referring Provider Family Medicine; Visit Provider Family Medicine
DX: N64.4 Mastodynia (principal)
CPT/HCPCS: 77066; G0279

== ENCOUNTER → 2022-09-01 15:44 | Outpatient (CLI) | payer OTHER, SELFPAY ==
[2022-09-03 09:30] LABS: Candida species Negative (Negative); Gardnerella vaginalis Negative (Negative); Trichomoas vaginalis Negative (Negative)
== END ==
PROVIDERS: PCP Family Medicine; Visit Provider Obstetrics & Gynecology
DX: N89.8 Other specified noninflammatory disorders of vagina (principal)
CPT/HCPCS: 87480; 87510; 87660

== ENCOUNTER → 2022-10-20 13:23 | Outpatient (CLI) | payer OTHER, SELFPAY ==
--- NOTE | 2022-10-20 13:26 | DI.US.S_ITS ---
PROCEDURE: US PELVIC COMPLETE INDICATIONS: PELVIC PAIN TECHNIQUE: Real-time scanning was performed of the pelvic organs, with image documentation. Additional endovaginal scanning was necessary due to incomplete visualization of the adnexal and endometrial structures by transabdominal scanning. COMPARISON: [facility], US, US PELVIC COMPLETE, 05/29/2019, 11:55. FINDINGS: Uterus: Uterus is anteverted and normal in size at 6.9 x 4.8 x 3.6 cm. The myometrium is homogeneous. The endometrium measures 7 mm combined thickness. No retained products of conception demonstrated. No suspicious blood flow. Ovaries: The right ovary measures 2.4 x 2.1 x 1.6 cm, with a calculated ovarian volume of 4 cc. The left ovary measures 2.8 x 2.7 x 2.1 cm, with a calculated ovarian volume of 8 cc. The ovaries have a normal sonographic appearance. Less than 12 follicles can be seen in each ovary. No adnexal masses are seen. Other: No pathologic free abdominal or pelvic fluid. IMPRESSION: 1. No retained products of conception demonstrated. No suspicious blood flow. Endometrium measures 7 mm. 2. Normal sonographic appearance of the ovaries. We strive to produce accurate, complete, and clear reports of imaging services. To assist us in improving patient care, this report was composed using standard report templates and voice recognition software. Therefore, it may contain abnormal punctuation, insertions and/or omissions. Occasional wrong-word or sound-alike substitutions may occur. Though we review the report and make efforts to correct it, we do recommend that the report be read carefully in proper context to recognize any text inaccuracies. Dictated by: Alvaro Norton M.D. on 10/25/2022 at 7:59 Approved by: Alvaro Norton M.D. on 10/25/2022 at 8:01
== END ==
PROVIDERS: PCP Family Medicine; Referring Provider Family Medicine; Visit Provider Family Medicine
DX: R10.2 Pelvic and perineal pain (principal)
CPT/HCPCS: 76856

== ENCOUNTER → 2022-12-08 09:06 | Outpatient (CLI) | payer OTHER, SELFPAY ==
[2022-12-08 09:56] LABS: Hematocrit 38.4 % (36-46); Hemoglobin 13.3 g/dL (12.0-16.0); Mean Corpuscular HGB Conc 34.7 % (30-36); Mean Corpuscular Volume 92.4 fL (80-100); Platelet Count 244 X10^3/uL (150-400); Red Blood Cell Count 4.15 X10^6/uL (4.0-5.2); Red Cell Distribution Width 12.7 % (11.6-14.8); White Blood Cell Count 3.9 X10^3/uL (4.5-11.0)
[2022-12-08 10:20] LABS: Alanine Aminotransferase 16 IU/L (<35); Albumin 3.9 g/dL (3.5-5.0); Albumin Globulin Ratio 1.4 (1.0-2.8); Alkaline Phosphatase 82 U/L (38-126); Aspartate Aminotransferase 21 IU/L (14-36); BUN Creatinine Ratio 22.4 (6-22); Bilirubin Total 0.7 mg/dL (0.2-1.3); Blood Urea Nitrogen 11 mg/dL (7-17); Calcium 8.5 mg/dL (8.4-10.2); Carbon Dioxide 29 mmol/L (22-32); Chloride 104 mmol/L (98-107); Cholesterol 177 mg/dL (140-199); Estimated Glomerular Filt Rate > 60 mL/min (>60); Globulin 2.7 g/dL (1.7-4.1); Glucose 79 mg/dL (70-100); HDL Cholesterol 72 mg/dL (40-60); HEMOLYSIS < 15 (0-50); LDL Cholesterol Calculated 94 mg/dL (<100); Sodium 139 mmol/L (137-145); Total Protein 6.6 g/dL (6.3-8.2); Triglycerides 53 mg/dL (35-150)
[2022-12-08 10:37] LABS: Vitamin D 25 Hydroxy (D3) 24.3 ng/mL (30.0-100.0)
[2022-12-08 10:48] LABS: TSH w/ Reflex to FT4 2.16 uIU/mL (0.47-4.68)
== END ==
PROVIDERS: PCP Family Medicine; Referring Provider Family Medicine; Visit Provider Family Medicine
DX: D64.9 Anemia, unspecified (principal); E55.9 Vitamin D deficiency, unspecified; E78.5 Hyperlipidemia, unspecified
CPT/HCPCS: 36415; 80053; 80061; 82306; 84443; 85027

== ENCOUNTER → 2023-01-16 10:04 | Outpatient (CLI) | payer OTHER, SELFPAY ==
--- NOTE | 2023-01-16 | DI.MG.S_ITS ---
BILATERAL DIGITAL SCREENING MAMMOGRAM 3D/2D WITH CAD: 01/16/2023 CLINICAL: Routine screening. Family history of breast cancer. Comparison is made to exams dated: 01/14/2022 mammogram - [facility] and 12/25/2014 mammogram - outside location. Both breasts are extremely dense, which lowers the sensitivity of mammography (category d />75% glandular tissue). Current study was also evaluated with a Computer Aided Detection (CAD) system. No significant masses, calcifications, or other findings are seen in either breast. There has been no significant interval change. IMPRESSION: NEGATIVE There is no mammographic evidence of malignancy. A 1 year screening mammogram is recommended. Based on the Tyrer Cuzick model (a risk assessment model) the patient's lifetime risk is 15.5% and her 10 year risk is 2.0%. According to the ACR, ACS, and NCCN guidelines, an annual breast MRI exam along with mammogram is recommended if the patient's lifetime risk is 20% or greater. This exam was interpreted at Station ID: [id number]. NOTE: For mammograms, a report in lay terms will be sent to the patient. Approximately 15% of breast malignancies will not be visualized mammographically. In the management of a palpable breast mass, a negative mammogram must not discourage biopsy of a clinically suspicious lesion. Electronically Signed By: Epifanio cheema/fatmata:01/16/2023 12:19:33 letter sent: Normal Exam ACR BI-RADS Category 1: Negative 3341F
== END ==
PROVIDERS: PCP Family Medicine; Referring Provider Family Medicine; Visit Provider Family Medicine
DX: Z12.31 Encounter for screening mammogram for malignant neoplasm of breast (principal); Z80.3 Family history of malignant neoplasm of breast
CPT/HCPCS: 77063; 77067

== ENCOUNTER → 2023-05-01 10:27 | Outpatient (CLI) | payer OTHER, SELFPAY ==
[2023-05-03 16:37] LABS: QuantiFERON Mitogen Value >10.00 IU/mL (.); QuantiFERON Nil Value 0.01 IU/mL (.); QuantiFERON TB Gold Plus Negative (Negative); QuantiFERON TB1 Ag Value 0.01 IU/mL (.)
== END ==
PROVIDERS: PCP Family Medicine; Referring Provider Family Medicine; Visit Provider Family Medicine
DX: Z11.1 Encounter for screening for respiratory tuberculosis (principal); Z20.9 Contact with and (suspected) exposure to unspecified communicable disease; Z78.9 Other specified health status; Z91.89 Other specified personal risk factors, not elsewhere classified
CPT/HCPCS: 36415; 86480

== ENCOUNTER → 2023-12-06 06:56 | Outpatient (CLI) | payer OTHER, SELFPAY ==
[2023-12-06 07:43] LABS: Add Manual Diff / Slide Review NO; Basophils Absolute Auto 100 /uL (0-100); Eosinophils Absolute Auto 100 /uL (0-450); Eosinophils Percent Auto 2.7 % (2-4); Hematocrit 39.1 % (36-46); Hemoglobin 13.8 g/dL (12.0-16.0); Lymphocytes Absolute Auto 2100 /uL (1100-4500); Lymphocytes Percent Auto 40.7 % (25-40); Mean Corpuscular HGB Conc 35.1 % (30-36); Mean Corpuscular Hemoglobin 32.8 PG (26-34); Mean Corpuscular Volume 93.4 fL (80-100); Monocytes Absolute Auto 300 /uL (0-900); Monocytes Percent Auto 6.5 % (3-14); Neutrophils Absolute Auto 2500 /uL (1500-7000); Neutrophils Percent Auto 49.1 % (50-75); Platelet Count 298 X10^3/uL (150-400); Red Blood Cell Count 4.19 X10^6/uL (4.0-5.2); White Blood Cell Count 5.2 X10^3/uL (4.5-11.0)
[2023-12-06 08:09] LABS: Alanine Aminotransferase 13 IU/L (<35); Albumin Globulin Ratio 1.3 (1.0-2.8); Alkaline Phosphatase 69 U/L (38-126); Aspartate Aminotransferase 20 IU/L (14-36); BUN Creatinine Ratio 18.5 (6-22); Blood Urea Nitrogen 10 mg/dL (7-17); Calcium 8.8 mg/dL (8.4-10.2); Carbon Dioxide 29 mmol/L (22-32); Chloride 105 mmol/L (98-107); Cholesterol 179 mg/dL (140-199); Estimated Glomerular Filt Rate > 60 mL/min (>60); Glucose 86 mg/dL (70-100); HDL Cholesterol 59 mg/dL (40-60); HEMOLYSIS < 15 (0-50); LDL Cholesterol Calculated 106 mg/dL (<100); Sodium 138 mmol/L (137-145); Triglycerides 68 mg/dL (35-150)
[2023-12-06 08:20] LABS: Vitamin D 25 Hydroxy (D3) 40.7 ng/mL (30.0-100.0)
[2023-12-06 08:36] LABS: TSH w/ Reflex to FT4 2.29 uIU/mL (0.47-4.68)
== END ==
LOC: LAB 06:57
PROVIDERS: PCP Family Medicine; Referring Provider Family Medicine; Visit Provider Family Medicine
DX: R79.89 Other specified abnormal findings of blood chemistry (principal); E78.5 Hyperlipidemia, unspecified; D64.9 Anemia, unspecified; E55.9 Vitamin D deficiency, unspecified; R89.9 Unspecified abnormal finding in specimens from other organs, systems and tissues
CPT/HCPCS: 36415; 80053; 80061; 82306; 84443; 85025

== ENCOUNTER → 2024-01-22 07:44 | Outpatient (CLI) | payer OTHER, SELFPAY ==
--- NOTE | 2024-01-22 07:45 | DI.MG.S_ITS ---
BILATERAL DIGITAL SCREENING MAMMOGRAM 3D/2D WITH CAD: 01/22/2024 CLINICAL: Routine screening. Family history of breast cancer. Comparison is made to exams dated: 01/16/2023 mammogram, 01/14/2022 mammogram - [facility], and 12/25/2014 mammogram - outside location. Both breasts are heterogeneously dense, which may obscure small masses (category c / 51-75% glandular tissue). Current study was also evaluated with a Computer Aided Detection (CAD) system. No significant masses, calcifications, or other findings are seen in either breast. There has been no significant interval change. IMPRESSION: NEGATIVE There is no mammographic evidence of malignancy. A 1 year screening mammogram is recommended. Based on the Tyrer Cuzick model (a risk assessment model) the patient's lifetime risk is 10.4% and her 10 year risk is 1.4%. According to the ACR, ACS, and NCCN guidelines, an annual breast MRI exam along with mammogram is recommended if the patient's lifetime risk is 20% or greater. This exam was interpreted at Station ID: [id number]. NOTE: For mammograms, a report in lay terms will be sent to the patient. Approximately 15% of breast malignancies will not be visualized mammographically. In the management of a palpable breast mass, a negative mammogram must not discourage biopsy of a clinically suspicious lesion. Electronically Signed By: Jeovany ortiz/fatmata:01/22/2024 09:28:50 letter sent: Normal Exam ACR BI-RADS Category 1: Negative 3341F
== END ==
LOC: MAMMO 07:45
PROVIDERS: PCP Family Medicine; Referring Provider Family Medicine; Visit Provider Family Medicine
DX: Z12.31 Encounter for screening mammogram for malignant neoplasm of breast (principal); Z80.3 Family history of malignant neoplasm of breast; R92.333 Mammographic heterogeneous density, bilateral breasts
CPT/HCPCS: 77063; 77067

== ENCOUNTER → 2024-03-26 09:51 | Outpatient (CLI) | payer OTHER, SELFPAY ==
--- NOTE | 2024-03-26 09:52 | DI.RAD.S_ITS ---
PROCEDURE: XR WRIST RT MIN 3V INDICATIONS: fall off skateboard, pain cristobal @ distal radius TECHNIQUE: 4 views of the wrist were acquired. COMPARISON: None. FINDINGS: Bones: No fractures or dislocations. No suspicious bony lesions. Soft tissues: No suspicious soft tissue calcifications. IMPRESSION: No acute wrist fracture or dislocation. No gross soft tissue abnormalities. Dictated by: Madi Muir M.D. on 03/26/2024 at 13:17 Approved by: Madi Muir M.D. on 03/26/2024 at 13:26
== END ==
PROVIDERS: PCP Family Medicine; Referring Provider Nurse Practitioner Family; Visit Provider Nurse Practitioner Family
DX: S69.91XA Unspecified injury of right wrist, hand and finger(s), initial encounter (principal); V00.131A Fall from skateboard, initial encounter
CPT/HCPCS: 73110

== ENCOUNTER → 2024-08-14 16:04 | Outpatient (CLI) | payer OTHER, SELFPAY ==
[2024-08-14 18:48] LABS: Ferritin 12 ng/mL (6-137)
== END ==
LOC: LAB 16:05
PROVIDERS: PCP Family Medicine; Referring Provider Family Medicine; Visit Provider Family Medicine
DX: N95.1 Menopausal and female climacteric states (principal); D64.9 Anemia, unspecified; E66.811 Obesity, class 1; Z68.30 Body mass index [BMI] 30.0-30.9, adult; E78.5 Hyperlipidemia, unspecified; Z80.3 Family history of malignant neoplasm of breast
CPT/HCPCS: 36415; 82627; 82728

== ENCOUNTER → 2024-09-27 09:35 | Outpatient (CLI) | payer OTHER, SELFPAY ==
--- NOTE | 2024-09-27 09:37 | DI.US.S_ITS ---
LIMITED ULTRASOUND OF LEFT BREAST AND AXILLA: 09/27/2024 CLINICAL: Palpable left breast lump. Comparison is made to exams dated: 09/27/2024 mammogram, 01/22/2024 mammogram, 01/16/2023 mammogram, 01/14/2022 mammogram, and 09/28/2021 ultrasound - [facility]. Color flow and real-time ultrasound of the left breast 1-2 o'clock, and axilla regions were performed. Vu scale images of the real-time examination were reviewed. No significant abnormalities were seen sonographically in the left breast or the left axilla. IMPRESSION: NEGATIVE No sonographic evidence of malignancy in the region of the palpable abnormality. No enlarged left axillary lymph nodes. A 1 year screening mammogram is recommended. Exam findings were conveyed to the patient. Patient is advised to monitor for significant change. Clinical follow-up as needed. This exam was interpreted at Station ID: [id number]. Electronically Signed By: Alvaro Norton M.D. slc/:09/27/2024 10:35:36 letter sent: Normal Exam ACR BI-RADS Category 1: Negative
--- NOTE | 2024-09-27 09:37 | DI.MG.S_ITS ---
UNILATERAL LEFT DIGITAL DIAGNOSTIC MAMMOGRAM 3D/2D: 09/27/2024 CLINICAL: Palpable left breast lump. Comparison is made to exams dated: 01/16/2023 mammogram, 01/14/2022 mammogram, and 01/22/2024 mammogram - [facility]. There are scattered areas of fibroglandular density (category b / 25%-50% glandular tissue). No significant masses, calcifications, or other findings are seen in the breast. IMPRESSION: INCOMPLETE: NEED ADDITIONAL IMAGING EVALUATION No mammographic evidence of malignancy. A targeted ultrasound for the palpable abnormality is recommended and will immediately follow. Based on the Tyrer Cuzick model (a risk assessment model) the patient's lifetime risk is 7.1% and her 10 year risk is 0.9%. According to the ACR, ACS, and NCCN guidelines, an annual breast MRI exam along with mammogram is recommended if the patient's lifetime risk is 20% or greater. This exam was interpreted at Station ID: [id number]. NOTE: For mammograms, a report in lay terms will be sent to the patient. Approximately 15% of breast malignancies will not be visualized mammographically. In the management of a palpable breast mass, a negative mammogram must not discourage biopsy of a clinically suspicious lesion. Electronically Signed By: Alvaro Norton M.D. slc/:09/27/2024 10:29:05 letter sent: Additional Imaging Needed ACR BI-RADS Category 0: Incomplete: Need Additional Imaging Evaluation
== END ==
PROVIDERS: PCP Family Medicine; Referring Provider Family Medicine; Visit Provider Family Medicine
DX: N63.20 Unspecified lump in the left breast, unspecified quadrant (principal); R92.2 Inconclusive mammogram
CPT/HCPCS: 76642; 77065; G0279

== ENCOUNTER → 2024-12-31 09:24 | Outpatient (CLI) | payer OTHER, SELFPAY ==
[2024-12-31 10:39] LABS: Alanine Aminotransferase 15 IU/L (<35); Albumin 4.3 g/dL (3.5-5.0); Albumin Globulin Ratio 1.4 (1.0-2.8); Alkaline Phosphatase 75 U/L (38-126); Aspartate Aminotransferase 21 IU/L (14-36); BUN Creatinine Ratio 16.9 (6-22); Bilirubin Total 1.1 mg/dL (0.2-1.3); Blood Urea Nitrogen 12 mg/dL (7-17); Calcium 8.9 mg/dL (8.4-10.2); Carbon Dioxide 26 mmol/L (22-32); Chloride 105 mmol/L (98-107); Cholesterol 210 mg/dL (140-199); Estimated Glomerular Filt Rate > 60 mL/min (>60); Glucose 94 mg/dL (70-100); HDL Cholesterol 69 mg/dL (40-60); HEMOLYSIS < 15 (0-50); LDL Cholesterol Calculated 124 mg/dL (<100); Potassium 4.3 mmol/L (3.4-5.1); Sodium 139 mmol/L (137-145); Total Protein 7.3 g/dL (6.3-8.2); Triglycerides 87 mg/dL (35-150)
[2024-12-31 11:12] LABS: Ferritin 21 ng/mL (6-137)
[2025-01-01 07:40] LABS: CRP, High Sensitivity 0.87 mg/L (0.00-3.00)
[2025-01-02 05:41] LABS: Insulin Level Total 2.7 uIU/mL (2.6-24.9)
[2025-01-13 05:08] LABS: Percent Free Testosterone 2.43 % (0.50-2.80); Testosterone Free 0.43 ng/dL (0.10-0.85); Testosterone Total 17.5 ng/dL (.)
== END ==
PROVIDERS: PCP Family Medicine; Referring Provider Family Medicine; Visit Provider Family Medicine
DX: Z01.419 Encounter for gynecological examination (general) (routine) without abnormal findings (principal); L70.0 Acne vulgaris; N95.1 Menopausal and female climacteric states; E78.5 Hyperlipidemia, unspecified; R79.89 Other specified abnormal findings of blood chemistry; E88.810 Metabolic syndrome; E66.9 Obesity, unspecified
CPT/HCPCS: 36415; 80053; 80061; 82627; 82728; 83525; 84402; 84403; 86140

== ENCOUNTER → 2025-01-22 07:42 | Outpatient (CLI) | payer OTHER, SELFPAY ==
--- NOTE | 2025-01-22 07:43 | DI.MG.S_ITS ---
MM screening mammo BI: 01/22/2025. BI-RADS: 1 CLINICAL: 44-year old female for bilateral screening mammogram. Tyrer-Cuzick lifetime risk of 13.5%. Current reported family history of breast cancer: mother, maternal aunt, second maternal aunt and third maternal aunt. PRIOR EXAMS 09/27/2024, 01/22/2024, 01/16/2023, 01/14/2022. MAMMOGRAPHY TECHNIQUE: 2D and 3D (tomosynthesis) digital mammographic views obtained, with additional images as needed for full coverage. Current study was also evaluated with a Computer Aided Detection (CAD) system. DENSITY B. There are scattered areas of fibroglandular density. MAMMOGRAPHY FINDINGS Bilateral: No suspicious mass, asymmetry, microcalcification, or other abnormality seen. No significant change from comparison. IMPRESSION: * No evidence of malignancy. RECOMMENDATIONS Bilateral * Annual screening mammography. OVERALL ASSESSMENT CATEGORY BI-RADS-1: Negative. The [employer] recommends annual screening mammography beginning at age 40 for women with average risk of breast cancer. ELECTRONICALLY SIGNED: Cornelius Richey M.D. on 01/22/2025 at 01:02:39 PM PT Interpreting Station ID: [id number]
== END ==
PROVIDERS: PCP Family Medicine; Referring Provider Family Medicine; Visit Provider Family Medicine
DX: Z12.31 Encounter for screening mammogram for malignant neoplasm of breast (principal); Z80.3 Family history of malignant neoplasm of breast
CPT/HCPCS: 77063; 77067